=== PATIENT | male | born 1940 | race Caucasian/White ===

== ENCOUNTER → 2019-11-13 08:45 | Outpatient (CLI) | payer MEDICARE, SELFPAY ==
[2019-11-13 09:58] LABS: Hemoglobin A1C% w Est Avg Glu 6.1 % (4.0-6.0)
[2019-11-13 10:00] LABS: Alanine Aminotransferase 24 IU/L (<50); Albumin 4.8 g/dL (3.5-5.0); Albumin Globulin Ratio 1.8 (1.0-2.8); Alkaline Phosphatase 59 U/L (38-126); Aspartate Aminotransferase 28 IU/L (17-59); Bilirubin Total 0.5 mg/dL (0.2-1.3); Blood Urea Nitrogen 29 mg/dL (9-20); Calcium 10.2 mg/dL (8.4-10.2); Carbon Dioxide 28 mmol/L (22-32); Chloride 104 mmol/L (98-107); Cholesterol 126 mg/dL (140-199); Estimated Glomerular Filt Rate > 60.0 mL/min (>60); Globulin 2.6 g/dL (1.7-4.1); Glucose 148 mg/dL (80-110); HDL Cholesterol 37 mg/dL (40-60); HEMOLYSIS < 15 (0-50); LDL Cholesterol Calculated 69 mg/dL (<100); Potassium 4.4 mmol/L (3.4-5.1); Sodium 141 mmol/L (137-145); Total Protein 7.4 g/dL (6.3-8.2); Triglycerides 101 mg/dL (35-150)
== END ==
PROVIDERS: PCP Internal Medicine; Visit Provider Internal Medicine
DX: E11.9 Type 2 diabetes mellitus without complications (principal); I10 Essential (primary) hypertension; I25.10 Atherosclerotic heart disease of native coronary artery without angina pectoris
CPT/HCPCS: 36415; 80053; 80061; 83036

== ENCOUNTER → 2020-05-26 07:17 | Outpatient (CLI) | payer MEDICARE, SELFPAY ==
[2020-05-26 08:33] LABS: Alanine Aminotransferase 23 IU/L (<50); Albumin 4.6 g/dL (3.5-5.0); Albumin Globulin Ratio 1.7 (1.0-2.8); Alkaline Phosphatase 59 U/L (38-126); Aspartate Aminotransferase 27 IU/L (17-59); BUN Creatinine Ratio 24.3 (6-22); Bilirubin Total 0.5 mg/dL (0.2-1.3); Blood Urea Nitrogen 28 mg/dL (9-20); Calcium 10.2 mg/dL (8.4-10.2); Carbon Dioxide 28 mmol/L (22-32); Chloride 102 mmol/L (98-107); Estimated Glomerular Filt Rate > 60.0 mL/min (>60); Globulin 2.7 g/dL (1.7-4.1); Glucose 131 mg/dL (80-110); HEMOLYSIS < 15 (0-50); Potassium 4.5 mmol/L (3.4-5.1); Sodium 137 mmol/L (137-145); Total Protein 7.3 g/dL (6.3-8.2)
[2020-05-30 08:09] LABS: Cholesterol, Total 125 mg/dL (100-199); HDL-Cholesterol 42 mg/dL (>39); HDL-Particle (Total) 32.2 umol/L (>=30.5); LDL Particle 920 nmol/L (<1000); LDL-Cholsterol 66 mg/dL (0-99); LP-IR Score 57 (<=45); Small LDL- Particle 633 nmol/L (<=527); Triglycerides 86 mg/dL (0-149)
== END ==
PROVIDERS: PCP Internal Medicine; Referring Provider Specialist; Visit Provider Specialist
DX: E78.5 Hyperlipidemia, unspecified (principal)
CPT/HCPCS: 36415; 80053; 80061; 83704

== ENCOUNTER → 2021-01-05 07:38 | Outpatient (CLI) | payer MEDICARE, SELFPAY ==
--- NOTE | 2021-01-05 | DI.ECHO.S_ITS ---
[place] [facility]---------+ [facility] +---------+ : : [address] : [address] : : : : [id number] : : : : Phone: [phone]+ Echocardiogram Report + + :Name: TING JOHNSON Study Date: 01/05/2021 Height: 66 in : :[facility] ReadingLocation: Weight: 186 lb : : Gender: Male BSA: 1.9 m2 : :: 1940 Age: 80 yrs BP: 131/74 mmHg: :Reason For Study: Palpitations : :Ordering Physician: Clement : :Adrienne Campos Performed By: Becka Fishman : + + Interpretation Summary Left ventricular systolic function appears normal with an estimated ejection fraction of 55 to 60% without any focal wall motion abnormality although and slightly less dynamic compared to the previous study. Left ventricular size is normal with borderline LVH. Diastolic function likely has a relaxation abnormality but filling pressures are likely normal. The right ventricle is normal in size with borderline reduced systolic function and appears slightly less dynamic compared to the previous study. Right ventricular systolic pressure cannot be estimated. Both atria are normal in size although both have increased in size since the previous study. There is moderate aortic valve sclerosis without stenosis and mild to moderate aortic regurgitation that grossly appears unchanged from the previous study. There is no other significant valvular abnormality. The aortic root, ascending aorta, and aortic arch are all mildly enlarged and measure larger compared to the previous study. Procedure: A two-dimensional transthoracic echocardiogram with color flow and Doppler was performed. The study quality was technically adequate. Comparison is made with the echocardiogram of 12/05/2011. The patient was in sinus bradycardia with heart rates between 51-61 bpm during the exam. Left Ventricle: The left ventricle is normal in size. There is borderline concentric left ventricular hypertrophy. There is no ventricular septal defect visualized. Left ventricular systolic function appears normal without focal wall motion abnormalities. The ejection fraction is estimated to be 55-60%. This is slightly less dynamic compared to the previous study. Diastolic parameters suggest a relaxation abnormality of the left ventricle, consistent with probable normal filling pressures. Right Ventricle: The right ventricle is normal size. Right ventricular systolic function is borderline reduced. This is slightlly less dynamic compared to the previous study. Atria: Both atria are normal in size. Both atria have mildly increased in size since the prior echo exam. There is no Doppler evidence for an interatrial shunt. Mitral Valve: There is mild mitral annular calcification. There is trace mitral regurgitation. Aortic Valve: The aortic valve is trileaflet. The aortic valve is moderately calcified. The aortic valve opens well. There is mild to moderate aortic regurgitation. This is unchanged compared to the previous study. Tricuspid Valve: The tricuspid valve leaflets are thin and pliable. There is a trace or physiologic amount of tricuspid regurgitation. Pulmonary artery pressures cannot be estimated because of the lack of a measurable TR jet velocity. Pulmonic Valve: The pulmonic valve is not well visualized. Great Vessels: The aortic root is borderline dilated. The ascending aorta is mildly enlarged. The aortic arch is mildly enlarged. This is larger compared to the previous study. The inferior vena cava was not visualized. Pericardium/ Pleura There is no pericardial effusion. MMode/2D Measurements & Calculations LVIDd: 4.4 cm LVOT diam: 2.5 cm LVIDs: 3.1 cm Ao root diam: 4.1 cm FS: 30.8 % asc Aorta Diam: 3.9 cm EPSS: 0.67 cm Ao Arch Diam (Prox Trans): 3.2 cm IVSd: 1.0 cm LVPWd: 1.1 cm LV hsieh. diameter/BSA (cm/m^2): 2.3 LV sys. diameter/BSA (cm/m^2): 1.6 LA A2 area: 23.6 cm2 RA long axis: 5.0 cm LA A4 area: 14.4 cm2 RA area: 12.4 cm2 LA length (vol): 5.0 cm RA vol: 26.0 ml LA vol: 57.5 ml RA : 13.4 ml/m2 LA vol index: 29.6 ml/m2 RVD1 (basal): 3.6 cm TAPSE: 1.2 cm Doppler Measurements & Calculations Ao V2 max: 152.5 cm/sec LVOT Max Robert: 101.8 cm/sec Ao V2 mean: 106.8 cm/sec LV V1 max P.1 mmHg Ao max P.3 mmHg LV V1 VTI: 26.0 cm Ao mean P.1 mmHg LESLY(I,D): 3.7 cm2 Ao V2 VTI: 35.7 cm LESLY(V,D): 3.3 cm2 sev ratio: 0.73 LESLY indexed to BSA (cm^2/m^2): 1.9 AI P1/2t: 787.3 msec AI dec slope: 123.7 cm/sec2 MV E max robert: 95.4 cm/sec TR max robert: 230.3 cm/sec MV A max robert: 112.6 cm/sec TR max P.2 mmHg MV E/A: 0.85 PA V2 max: 98.8 cm/sec Med Peak E' Robert: 7.1 cm/sec PA V2 mean: 70.7 cm/sec E/E' med: 13.5 PA mean P.2 mmHg Lat Peak E' Robert: 11.5 cm/sec PA pr(Accel): 31.5 mmHg E/E' lat: 8.3 E/e' average: 10.9 MV dec time: 0.31 sec SV(LVOT): 130.5 ml Reading Physician:04:10 PM
[2021-01-05 09:03] LABS: Alanine Aminotransferase 24 IU/L (<50); Albumin 4.7 g/dL (3.5-5.0); Albumin Globulin Ratio 1.9 (1.0-2.8); Alkaline Phosphatase 52 U/L (38-126); Aspartate Aminotransferase 27 IU/L (17-59); BUN Creatinine Ratio 23.5 (6-22); Bilirubin Total 0.4 mg/dL (0.2-1.3); Blood Urea Nitrogen 28 mg/dL (9-20); Calcium 9.9 mg/dL (8.4-10.2); Carbon Dioxide 28 mmol/L (22-32); Chloride 101 mmol/L (98-107); Estimated Glomerular Filt Rate 58.8 mL/min (>60); Globulin 2.5 g/dL (1.7-4.1); Glucose 137 mg/dL (80-110); HEMOLYSIS < 15 (0-50); Magnesium 2.2 mg/dL (1.6-2.3); Potassium 4.3 mmol/L (3.4-5.1); Sodium 138 mmol/L (137-145); Total Protein 7.2 g/dL (6.3-8.2)
[2021-01-18 13:34] LABS: LDL Particle SEE SEPARATE REPORTS
== END ==
PROVIDERS: PCP Internal Medicine; Referring Provider Specialist; Visit Provider Specialist
DX: I35.1 Nonrheumatic aortic (valve) insufficiency (principal); I77.89 Other specified disorders of arteries and arterioles; R00.2 Palpitations; I10 Essential (primary) hypertension; E78.5 Hyperlipidemia, unspecified; G47.33 Obstructive sleep apnea (adult) (pediatric)
CPT/HCPCS: 36415; 80053; 80061; 83704; 83735; 93306

== ENCOUNTER → 2021-03-15 10:13 | Outpatient (CLI) | payer MEDICARE, SELFPAY ==
[2021-03-15 10:44] LABS: COVID19 -Nasal RAPID Negative (Negative)
== END ==
PROVIDERS: PCP Internal Medicine; Visit Provider Specialist
DX: Z20.822 Contact with and (suspected) exposure to COVID-19 (principal)
CPT/HCPCS: 87635; C9803

== ENCOUNTER 2021-03-16 06:22 | Day surgery (SDC) | payer MEDICARE, SELFPAY ==
[2021-03-16] MEDS: LACTATED RINGERS 1,000 ML 100 ML IV (07:11)
[2021-03-16 07:12] VITALS: BP 156/70; PULSE 64; RESP 14; TEMP 36.2; O2SAT 96; BMI 29.8
--- NOTE | 2021-03-16 07:39 | P.HP_ITS ---
History of Present Illness History of Present Illness Date Patient Seen: 03/16/21 Time Patient Seen: 07:39 Chief complaint: SCREENING COLONOSCOPY Narrative: Patient is a gentleman here for screening colonoscopy. His last colonoscopy was done at [facility] and they sent him a letter that he was due for his next exam. He is uncertain if he has had polyps in the past but I suspect so. Also, he has no history in his family of colon cancer. Patient History Medical History Hypertension Myocardial infarct QUIQUE on CPAP Prediabetes Surgical History H/O heart bypass surgery Family & Social History Social History: household members spouse Tobacco & Substance use: Smoking Status Never smoker alcohol intake current alcohol intake frequency a few times a week Substance Use Type does not use Meds Home Medications and Allergies Home Medications Medication Instructions Recorded Confirmed Type simvastatin 40 mg PO Q DAY #0 11/23/11 03/16/21 History aspirin 81 mg PO QDAY #0 01/09/12 03/16/21 History cyanocobalamin (vitamin B-12) 1,000 mcg PO DAILY 03/16/21 03/16/21 History [Vitamin B-12] ibuprofen 200 mg PO BEDTIME 03/16/21 03/16/21 History losartan-hydrochlorothiazide 1 tab PO DAILY 03/16/21 03/16/21 History Allergies Allergy/AdvReac Type Severity Reaction Status Date / Time No Known Drug Allergies Allergy Verified 03/16/21 07:00 Review of Systems Review of Systems Narrative: No cardiac symptoms since his bypass ROS: Yes All systems reviewed with the patient and are negative except as otherwise documented Exam Vital Signs (past 8 hours): - 03/16/21 07:12 Temperature 97.2 F L Pulse Rate 64 Respiratory Rate 14 Blood Pressure 156/70 H Pulse Oximetry 96 Oxygen Delivery Method Room Air Narrative Exam Narrative: Pleasant cooperative patient no apparent distress. Lungs are clear to auscultation. No rales or rhonchi. Heart regular rate and rhythm no murmur gallop. Abdomen is soft nontender without mass. Diastasis recti noted. No obvious hernias. Patient is alert and oriented x3. Assessment & Plan Assessment & Plan narrative: The patient for a screening colonoscopy. I have discussed the procedure with them. Risks of bleeding, perforation which would necessitate major operation, failure to find remove all lesions, the potential tattoo were all discussed. All questions were answered. They wished to proceed.
--- NOTE | 2021-03-16 07:41 | PM.PREOP ---
Pre-operative Note Interval Note History & Physical reviewed/Exam performed by Physician: Yes Changes to H&P: No ASA Class (for procedural sedation): III
[2021-03-16] MEDS: fentaNYL 250 MCG/5 ML INJ IV (07:53)
[2021-03-16] MEDS: MIDAZOLAM 5 MG/5 ML VIAL IV (07:53)
--- NOTE | 2021-03-16 08:19 | P.OP.ENDO_ITS ---
Operative Date/Time/Diagnoses Date of procedure: 03/16/21 Time of procedure: 08:19 Pre-op diagnosis: Screening exam. Probable history of polyps. Post-op diagnosis: same Procedure & Clinicians Study performed: Colonoscopy Same procedure as scheduled: Yes Indications: Screening Surgeon: Chun Garcia Procedure Notes SCOAP/Timeout: Performed Procedure in detail: The patient was placed in the left lateral decubitus posit ion and underwent IV sedation directed by the surgeon consisting of fentanyl and Versed. Digital exam was unremarkable. He did have a visible external hemorrhoid. His prostate is normal size without palpable mass.. The scope was inserted and advanced through the rectum into the sigmoid, descending, transverse, and ascending colon. Pressure was applied we made our way into the cecum.. The cecum was reached identified by the ileocecal valve and the appendiceal opening. The scope was gradually brought out. No Polyps were found. No diverticuli were seen. The scope ultimately was retroflexed in the rectum. The appearance was normal. The scope was removed and the patient tolerated the procedure well. The prep was very good Scope withdrawal time: Almost 8 minutes Sedation minutes: 24 Specimen(s): none sent Impression: Normal examination Post-procedure Recommendations: Colonscopy in 5 years (If polyps have been found on prior exams and if patient is in good health.) Follow up: as needed Disposition: PACU
[2021-03-16 08:22] VITALS: BP 114/68; PULSE 67; RESP 16; TEMP 37.1; O2SAT 95
[2021-03-16 08:27] VITALS: BP 126/72; PULSE 63; RESP 15; O2SAT 95
[2021-03-16 08:32] VITALS: BP 136/71; PULSE 62; RESP 15; O2SAT 95
[2021-03-16 08:37] VITALS: BP 129/74; PULSE 61; RESP 15; O2SAT 96
[2021-03-16 08:38] VITALS: BP 120/62; PULSE 61; RESP 15; TEMP 36.6; O2SAT 96
== END 2021-03-16 08:48 | disposition home or self-care (01) ==
PROVIDERS: PCP Internal Medicine; Referring Provider Internal Medicine; Visit Provider Specialist
PROC: 0DJD8ZZ Inspection of Lower Intestinal Tract, Via Natural or Artificial Opening Endoscopic (ICD-10-PCS; CPT 45378; principal; 2021-03-16 07:45)
DX: Z12.11 Encounter for screening for malignant neoplasm of colon (principal); I10 Essential (primary) hypertension; G47.33 Obstructive sleep apnea (adult) (pediatric); R73.03 Prediabetes; I25.2 Old myocardial infarction
CPT/HCPCS: G0121; 99152; J2250; J3010

== ENCOUNTER → 2021-08-17 07:30 | Outpatient (CLI) | payer MEDICARE, SELFPAY ==
[2021-08-17 08:59] LABS: Alanine Aminotransferase 20 IU/L (<50); Albumin 4.5 g/dL (3.5-5.0); Albumin Globulin Ratio 1.7 (1.0-2.8); Alkaline Phosphatase 48 U/L (38-126); Aspartate Aminotransferase 24 IU/L (17-59); BUN Creatinine Ratio 22.3 (6-22); Bilirubin Total 0.5 mg/dL (0.2-1.3); Blood Urea Nitrogen 27 mg/dL (9-20); Calcium 10.3 mg/dL (8.4-10.2); Carbon Dioxide 26 mmol/L (22-32); Chloride 100 mmol/L (98-107); Cholesterol 126 mg/dL (140-199); Estimated Glomerular Filt Rate 57.7 mL/min (>60); Globulin 2.6 g/dL (1.7-4.1); Glucose 137 mg/dL (80-110); HDL Cholesterol 47 mg/dL (40-60); HEMOLYSIS < 15 (0-50); LDL Cholesterol Calculated 62 mg/dL (<100); Magnesium 2.1 mg/dL (1.6-2.3); Potassium 4.8 mmol/L (3.4-5.1); Sodium 136 mmol/L (137-145); Total Protein 7.1 g/dL (6.3-8.2); Triglycerides 84 mg/dL (35-150)
== END ==
PROVIDERS: PCP Internal Medicine; Referring Provider Specialist; Visit Provider Specialist
DX: I10 Essential (primary) hypertension (principal); E78.5 Hyperlipidemia, unspecified
CPT/HCPCS: 36415; 80053; 80061; 83735

== ENCOUNTER → 2022-03-15 09:24 | Outpatient (CLI) | payer MEDICARE, SELFPAY ==
[2022-03-15 10:23] LABS: Alanine Aminotransferase 22 IU/L (<50); Albumin 4.9 g/dL (3.5-5.0); Albumin Globulin Ratio 1.7 (1.0-2.8); Alkaline Phosphatase 54 U/L (38-126); Aspartate Aminotransferase 28 IU/L (17-59); Bilirubin Total 0.6 mg/dL (0.2-1.3); Blood Urea Nitrogen 28 mg/dL (9-20); Calcium 9.7 mg/dL (8.4-10.2); Carbon Dioxide 25 mmol/L (22-32); Chloride 99 mmol/L (98-107); Cholesterol 122 mg/dL (140-199); Estimated Glomerular Filt Rate 60 mL/min (>60); Globulin 2.9 g/dL (1.7-4.1); Glucose 136 mg/dL (80-110); HDL Cholesterol 44 mg/dL (40-60); HEMOLYSIS < 15 (0-50); LDL Cholesterol Calculated 55 mg/dL (<100); Potassium 4.7 mmol/L (3.4-5.1); Sodium 133 mmol/L (137-145); Total Protein 7.8 g/dL (6.3-8.2); Triglycerides 117 mg/dL (35-150)
[2022-03-15 10:26] LABS: Hemoglobin A1C% w Est Avg Glu 6.8 % (4.0-6.0)
[2022-03-15 10:57] LABS: Prostate Specific Antigen 0.236 ng/mL (0.10-4.00)
[2022-03-15 11:00] LABS: TSH w/ Reflex to FT4 1.69 uIU/mL (0.47-4.68)
[2022-03-15 11:16] LABS: Vitamin B12 390 pg/mL (239-931)
[2022-03-15 11:38] LABS: Hematocrit 36.2 % (41-53); Hemoglobin 12.7 g/dL (13.5-17.5); Mean Corpuscular HGB Conc 35.1 % (30-36); Mean Corpuscular Hemoglobin 31.5 PG (26-34); Mean Corpuscular Volume 89.9 fL (80-100); Platelet Count 184 X10^3/uL (150-400); Red Blood Cell Count 4.02 X10^6/uL (4.5-5.9); Red Cell Distribution Width 12.5 % (11.6-14.8); White Blood Cell Count 5.5 X10^3/uL (4.5-11.0)
== END ==
PROVIDERS: PCP Internal Medicine; Referring Provider Internal Medicine; Visit Provider Internal Medicine
DX: E78.2 Mixed hyperlipidemia (principal); R73.01 Impaired fasting glucose; N40.0 Benign prostatic hyperplasia without lower urinary tract symptoms; I10 Essential (primary) hypertension; I25.10 Atherosclerotic heart disease of native coronary artery without angina pectoris
CPT/HCPCS: 36415; 80053; 80061; 82607; 83036; 84153; 84443; 85027

== ENCOUNTER → 2022-04-10 16:34 | Outpatient (CLI) | payer MEDICARE, SELFPAY ==
--- NOTE | 2022-04-10 16:36 | DI.RAD.S_ITS ---
PROCEDURE: XR CHEST 2V INDICATIONS: Cough for 2 weeks TECHNIQUE: 2 views of the chest were acquired. COMPARISON: [facility], , CHEST 1 VIEW, 01/09/2012, 15:45. FINDINGS: Surgical changes and devices: Median sternotomy. Lungs and pleura: Moderate airspace opacity within the medial right lung base. No pleural effusions or pneumothorax. Mediastinum: Mediastinal contours are normal. Heart size is normal. Bones and chest wall: No suspicious bony abnormalities. Soft tissues appear unremarkable. IMPRESSION: Right lung base pneumonia. Continued plain film surveillance is recommended to ensure resolution, and to exclude underlying or central malignancy. Dictated by: Monica Morgan M.D. on 04/10/2022 at 16:53 Approved by: Monica Morgan M.D. on 04/10/2022 at 16:54
== END ==
PROVIDERS: PCP Internal Medicine; Referring Provider Physician Assistant; Visit Provider Physician Assistant
DX: R05.9 Cough, unspecified (principal); J18.9 Pneumonia, unspecified organism
CPT/HCPCS: 71046

== ENCOUNTER → 2022-08-13 06:44 | Outpatient (CLI) | payer MEDICARE, SELFPAY ==
[2022-08-13 09:32] LABS: Alanine Aminotransferase 19 IU/L (<50); Albumin 4.6 g/dL (3.5-5.0); Albumin Globulin Ratio 1.7 (1.0-2.8); Alkaline Phosphatase 52 U/L (38-126); Aspartate Aminotransferase 24 IU/L (17-59); BUN Creatinine Ratio 18.3 (6-22); Bilirubin Total 0.5 mg/dL (0.2-1.3); Blood Urea Nitrogen 22 mg/dL (9-20); Calcium 9.7 mg/dL (8.4-10.2); Carbon Dioxide 23 mmol/L (22-32); Chloride 102 mmol/L (98-107); Estimated Glomerular Filt Rate > 60 mL/min (>60); Globulin 2.7 g/dL (1.7-4.1); Glucose 145 mg/dL (80-110); HEMOLYSIS < 15 (0-50); Potassium 4.5 mmol/L (3.4-5.1); Sodium 136 mmol/L (137-145); Total Protein 7.3 g/dL (6.3-8.2)
[2022-08-15 13:57] LABS: Cholesterol, Total 149 mg/dL (100-199); HDL-Cholesterol 47 mg/dL (>39); HDL-Particle (Total) 34.5 umol/L (>=30.5); LDL Particle 771 nmol/L (<1000); LDL-Cholsterol 79 mg/dL (0-99); LP-IR Score 71 (<=45); Small LDL- Particle 512 nmol/L (<=527); Triglycerides 133 mg/dL (0-149)
== END ==
PROVIDERS: PCP Internal Medicine; Referring Provider Specialist; Visit Provider Specialist
DX: I10 Essential (primary) hypertension (principal); E78.5 Hyperlipidemia, unspecified
CPT/HCPCS: 36415; 80053; 80061; 83704; 83735

== ENCOUNTER → 2022-09-20 08:39 | Outpatient (CLI) | payer MEDICARE, SELFPAY ==
[2022-09-20 09:55] LABS: Hematocrit 37.1 % (41-53); Hemoglobin 12.9 g/dL (13.5-17.5); Mean Corpuscular HGB Conc 34.8 % (30-36); Mean Corpuscular Hemoglobin 30.5 PG (26-34); Mean Corpuscular Volume 87.7 fL (80-100); Platelet Count 165 X10^3/uL (150-400); Red Blood Cell Count 4.24 X10^6/uL (4.5-5.9); Red Cell Distribution Width 12.9 % (11.6-14.8); White Blood Cell Count 5.6 X10^3/uL (4.5-11.0)
[2022-09-20 10:11] LABS: Creatinine Urine Random 102.6 mg/dL
[2022-09-20 10:15] LABS: Microalbumi Creatinin Ratio Ur 17.5 ug/mg CR (<30); Microalbumin Urine Random 1.8 mg/dL (0-1.6)
[2022-09-20 10:31] LABS: Hemoglobin A1C% w Est Avg Glu 7.4 % (4.0-6.0)
== END ==
PROVIDERS: PCP Internal Medicine; Referring Provider Internal Medicine; Visit Provider Internal Medicine
DX: E11.69 Type 2 diabetes mellitus with other specified complication (principal); E78.5 Hyperlipidemia, unspecified; D64.9 Anemia, unspecified
CPT/HCPCS: 36415; 82043; 82570; 83036; 85027

== ENCOUNTER 2022-09-26 11:23 | Emergency (ER) | payer MEDICARE, SELFPAY ==
[2022-09-26 11:32] VITALS: BP 149/70; PULSE 68; RESP 22; TEMP 36.6; O2SAT 95; BMI 29.8
--- NOTE | 2022-09-26 11:35 | DI.RAD.S_ITS ---
PROCEDURE: XR CHEST 2V INDICATIONS: cough/short of breath TECHNIQUE: 2 views of the chest were acquired. COMPARISON: [facility], CHEST 1 VIEW, 01/09/2012, 15:45. [facility], CHEST 1 VIEW, 11/22/2011, 21:44. [facility], XR CHEST 2V, 04/10/2022, 16:29. FINDINGS: Surgical changes and devices: Post CABG changes are seen. Lungs and pleura: An incomplete inspiratory result is noted, causing a crowded appearance to the lung markings. No focal infiltrates are seen. No pneumothorax or significant pleural effusions are seen. There is persistent elevation the right hemidiaphragm. Mediastinum: Mediastinal contours are normal. Heart size is normal. Bones and chest wall: No suspicious bony abnormalities. Age-appropriate bony degenerative changes are seen. Soft tissues appear unremarkable. IMPRESSION: Low lung volumes are seen, without an acute abnormality. Postoperative and degenerative changes are seen. Persistent elevation of the right hemidiaphragm is seen. If there is strong clinical concern for paralysis of this hemidiaphragm, please consider a dedicated fluoroscopic sniff test for further evaluation. Dictated by: Alphonse Lombardi M.D. on 09/26/2022 at 11:20 Approved by: Alphonse Lombardi M.D. on 09/26/2022 at 11:21
--- NOTE | 2022-09-26 12:16 | ED.FEVER ---
HPI - Fever <Jazzy Bacon PA-C - Last Filed: 09/26/22 14:19> General Chief Complaint: Fever Stated Complaint: pneumonia Time Seen by Provider: 09/26/22 12:10 Source: patient Mode of arrival: Ambulatory History of Present Illness HPI Narrative: Patient is a very pleasant 82 years old male, with PMH significant for dyslipidemia, anemia hypertension, presents today in ER with complaints of persistent cough, congestion for last 3 days.. He is quite concerned, as he has immunocompromised spouse at home, who is on chemotherapy. In terms of symptoms, patient had fever nasal congestion persistent cough with productive green sputum. His symptoms started to subside however he noted some chest congestion and cough which worsened p.m. the patient was treated for pneumonia in summer 2021, and concerned as his symptoms can progress to that. Related Data Home Medications Medication Instructions Recorded Confirmed aspirin 81 mg tablet,delayed 81 mg PO QDAY ##0 01/09/12 09/20/22 release cyanocobalamin (vitamin B-12) 1,000 mcg PO DAILY 03/16/21 09/20/22 1,000 mcg tablet (Vitamin B-12) Respironics DreamStation 2 01/10/22 09/20/22 L. acidophilus/Bifid. animalis 1 cap PO DAILY 09/20/22 09/20/22 [Daily Probiotic] atorvastatin 40 mg tablet 40 mg PO DAILY 09/20/22 09/20/22 vital red PO DAILY 09/20/22 Previous Rx's Medication Instructions Recorded losartan 50 mg-hydrochlorothiazide 1 tab PO DAILY #90 tabs 03/15/22 12.5 mg tablet azithromycin 250 mg tablet See Rx Instructions PO .COMPLEX #6 09/26/22 (Zithromax) tabs codeine 10 mg-guaifenesin 100 mg/5 5 ml PO Q6H PRN cough #120 mL 09/26/22 mL oral liquid (Guaifenesin AC) Allergies Allergy/AdvReac Type Severity Reaction Status Date / Time No Known Drug Allergies Allergy Verified 09/26/22 11:38 Review of Systems <Jazzy Bacon PA-C - Last Filed: 09/26/22 14:19> Review of Systems Narrative: Pertinent review of systems is otherwise normal unless stated in HPI Patient History <Jazzy Bacon PA-C - Last Filed: 09/26/22 14:19> Medical History B12 deficiency Coronary artery disease DM type 2 with diabetic dyslipidemia Do not resuscitate Essential hypertension History of colon polyps Hypertension Mixed hyperlipidemia Myocardial infarct Obesity (BMI 30.0-34.9) Obstructive sleep apnea, adult (~2001) Prediabetes RLL pneumonia Surgical History H/O heart bypass surgery Social History marital status: (to Cherie) details: lives in [place] number of children: 1 household members: spouse lives independently: Yes caregiver/support person: No housing: house education level: college (BA) occupational status: other (retired) Smoking Status: Never smoker alcohol intake: current Smoking Status: Never smoker alcohol intake frequency: a few times a week Alcohol type: wine and hard liquor Substance Use Type: does not use Exam <Jazzy Bacon PA-C - Last Filed: 09/26/22 14:19> Narrative Exam Narrative: GENERAL: 82 year old patient appears stated age. Well-developed patient, in mild distress. HEAD: Atraumatic. Normocephalic. EYES: Pupils equal round and reactive. Extraocular motions intact. No scleral icterus. No injection or drainage. ENT: Oropharynx erythematous, with clear nasal discharge Airway patent. NECK: Trachea midline. Non tender CARDIOVASCULAR: Regular rate and rhythm without murmurs, gallops, or rubs. RESPIRATORY: Bilateral rhonchi, cleared with cough and posterior lower lobes. Anterior lobes with coarse breath sound GASTROINTESTINAL: Abdomen soft, non-tender, nondistended. EXTREMITIES: No edema or joint tenderness. BACK: Nontender without deformity or crepitance. No flank tenderness. NEURO: AOx3. SKIN: No rash or erythema of visible areas Initial Vital Signs Initial Vital Signs: Vital Signs Temperature 97.9 F 09/26/22 11:32 Pulse Rate 68 09/26/22 11:32 Respiratory Rate 22 09/26/22 11:32 Blood Pressure 149/70 H 09/26/22 11:32 Pulse Oximetry 95 09/26/22 11:32 Oxygen Delivery Method 09/26/22 11:32 <Aldo Marquez DO - Last Filed: 09/26/22 15:30> Initial Vital Signs Initial Vital Signs: Vital Signs Temperature 97.9 F 09/26/22 11:32 Pulse Rate 68 09/26/22 11:32 Respiratory Rate 22 09/26/22 11:32 Blood Pressure 149/70 H 09/26/22 11:32 Pulse Oximetry 95 09/26/22 11:32 Oxygen Delivery Method 09/26/22 11:32 Course <Jazzy Bacon PA-C - Last Filed: 09/26/22 14:19> Orders Ordered: ED Orders 09/26/22 11:35 XR chest 2V Stat 09/26/22 11:40 Covid-19 + FLU A/B + RSV - PCR Stat Vital Signs Vital signs: Vital Signs - 8 hr 09/26/22 11:32 09/26/22 13:00 Temperature 97.9 F Pulse Rate 68 65 Respiratory Rate 22 18 Blood Pressure 149/70 H 132/63 Pulse Oximetry 95 96 Oxygen Delivery Method Room Air Room Air <Aldo Marquez DO - Last Filed: 09/26/22 15:30> Orders Ordered: ED Orders 09/26/22 11:35 XR chest 2V Stat 09/26/22 11:40 Covid-19 + FLU A/B + RSV - PCR Stat Vital Signs Vital signs: Vital Signs - 8 hr 09/26/22 11:32 09/26/22 13:00 Temperature 97.9 F Pulse Rate 68 65 Respiratory Rate 22 18 Blood Pressure 149/70 H 132/63 Pulse Oximetry 95 96 Oxygen Delivery Method Room Air Room Air MDM - Fever <Jazzy Bacon PA-C - Last Filed: 09/26/22 14:19> Lab Data Labs: Lab Results 09/26/22 Range/Units 11:40 SARS-CoV-2 (PCR) Negative (Negative) Influenza A (RT-PCR) Flu a negative (NEGATIVE) Influenza B (RT-PCR) Flu b negative (NEGATIVE) RSV (PCR) Negative (Negative) Imaging Data Chest x-ray: Radiologist's Impression: IMPRESSION:? Low lung volumes are seen, without an acute abnormality. ? Postoperative and degenerative changes are seen.? ? Persistent elevation of the right hemidiaphragm is seen.? If there is strong clinical concern for paralysis of this hemidiaphragm, please consider a dedicated fluoroscopic sniff test for further evaluation.? MDM Narrative Medical decision making narrative: Discussed with patient diagnosis and treatment. His symptoms most resemble acute bronchitis, in setting of acute respiratory syndrome, of which is not related to RSV, influenza A/B, or COVID 19 infection discussed symptom management, started on Z-Adrián, antitussives, increase hydration rest. Encouraged to exercise infectious precautions, explained the concept patient. <Aldo Marquez, - Last Filed: 09/26/22 15:30> Lab Data Labs: Lab Results 09/26/22 Range/Units 11:40 SARS-CoV-2 (PCR) Negative (Negative) Influenza A (RT-PCR) Flu a negative (NEGATIVE) Influenza B (RT-PCR) Flu b negative (NEGATIVE) RSV (PCR) Negative (Negative) Discharge Plan Departure Patient Disposition: Home Clinical Impression: Acute bronchitis and bronchiolitis, Acute upper respiratory infection, unspecified Instructions: DI for Fever (Symptom) -- Adult Activity Restrictions/Additional Instructions: You were diagnosed with acute bronchitis, and upper respiratory infection. The viral panel did not reveal influenza A/B, RSV, COVID-19. Vital signs has been stable in the ED discussed diagnosis and management, advised symptomatic control, start Zithromax, course of antibiotic, as well as guaifenesin codeine syrup for cough suppressant. Seek attention with worsening symptoms such as worsening shortness of breath, fever. Advised on infection preventing precautions, follow-up with PCP. Prescriptions: New azithromycin [Zithromax] 250 mg tablet See Rx Instructions .ROUTE .COMPLEX Qty: 6 0RF Rx Instructions: For 250 mg dose pack: take 500 mg today (day 1), then 250 mg for 4 days (days 2-5) codeine-guaifenesin [Guaifenesin AC] 10-100 mg/5 mL liquid 5 ml PO Q6H PRN (Reason: cough) Qty: 120 0RF No Action aspirin 81 MG tablet,delayed release (DR/EC) 81 mg PO QDAY Qty: 0 losartan-hydrochlorothiazide 50-12.5 mg tablet 1 tab PO DAILY Qty: 90 3RF atorvastatin 40 mg tablet 40 mg PO DAILY vital red PO DAILY L. acidophilus/Bifid. animalis [Daily Probiotic] 1 cap PO DAILY cyanocobalamin (vitamin B-12) [Vitamin B-12] 1,000 mcg Tablet 1,000 mcg PO DAILY (DME) Respironics DreamStation 2 See Rx Instructions .Route .MEDSUPPLY Rx Instructions: CPAP Min: 8 Max: 16 DME: [employer] Referrals: Malick Lerma MD [Primary Care Provider] - Visit Report Forms: Patient Portal/API <Aldo Marquez, - Last Filed: 09/26/22 15:30> Cosign ED Attending Cosignature Attestation: Dr Marquez Co-Sign Statement: I was available for consultation during this patient's emergency department visit. This chart is signed by myself for administrative purposes only. I did not have direct contact with this patient during this visit. They were seen independently by the APC.
[2022-09-26 12:29] LABS: Influenza A - CEPHEID Flu A NEGATIVE (NEGATIVE); Influenza B - CEPHEID Flu B NEGATIVE (NEGATIVE); Respiratory Syncytial Virus Negative (Negative)
[2022-09-26 12:32] LABS: COVID-19 CEPHEID 4-PLEX PCR Negative (Negative)
[2022-09-26 13:00] VITALS: BP 132/63; PULSE 65; RESP 18; O2SAT 96
== END 2022-09-26 13:02 | disposition home or self-care (01) ==
PROVIDERS: Emergency Medicine; Emergency Provider Physician Assistant Medical; PCP Internal Medicine
DX: J06.9 Acute upper respiratory infection, unspecified (principal); J21.9 Acute bronchiolitis, unspecified; J20.8 Acute bronchitis due to other specified organisms
CPT/HCPCS: 0241U; 71046; 99283

== ENCOUNTER → 2023-02-12 07:26 | Outpatient (CLI) | payer MEDICARE, SELFPAY ==
[2023-02-12 09:03] LABS: Alanine Aminotransferase 25 IU/L (<50); Albumin 4.3 g/dL (3.5-5.0); Albumin Globulin Ratio 1.5 (1.0-2.8); Alkaline Phosphatase 70 U/L (38-126); Aspartate Aminotransferase 22 IU/L (17-59); BUN Creatinine Ratio 21.9 (6-22); Bilirubin Total 0.6 mg/dL (0.2-1.3); Blood Urea Nitrogen 25 mg/dL (9-20); Calcium 9.8 mg/dL (8.4-10.2); Carbon Dioxide 28 mmol/L (22-32); Chloride 100 mmol/L (98-107); Estimated Glomerular Filt Rate > 60 mL/min (>60); Globulin 2.8 g/dL (1.7-4.1); Glucose 187 mg/dL (80-110); HEMOLYSIS < 15 (0-50); Potassium 4.6 mmol/L (3.4-5.1); Sodium 137 mmol/L (137-145); Total Protein 7.1 g/dL (6.3-8.2)
[2023-02-15 10:08] LABS: Cholesterol, Total 125 mg/dL (100-199); HDL-Cholesterol 31 mg/dL (>39); HDL-Particle (Total) 28.5 umol/L (>=30.5); LDL Particle 828 nmol/L (<1000); LDL-Cholsterol 62 mg/dL (0-99); LP-IR Score 82 (<=45); Small LDL- Particle 471 nmol/L (<=527); Triglycerides 189 mg/dL (0-149)
== END ==
PROVIDERS: PCP Internal Medicine; Visit Provider Specialist
DX: I10 Essential (primary) hypertension (principal); E78.5 Hyperlipidemia, unspecified; I47.1 Supraventricular tachycardia
CPT/HCPCS: 36415; 80053; 80061; 83704; 83735

== ENCOUNTER 2023-03-10 12:58 | Emergency (ER) | payer MEDICARE, SELFPAY ==
[2023-03-10] VITALS (17 sets, daily range): BP systolic 169–188; BP diastolic 75–86; PULSE 68–91; RESP 22–32; TEMP 37; O2SAT 92–100; BMI 30.9
--- NOTE | 2023-03-10 13:26 | DI.RAD.S_ITS ---
PROCEDURE: XR CHEST 1V INDICATIONS: suspected sepsis TECHNIQUE: One view of the chest was acquired. COMPARISON: [facility], CR, XR CHEST 2V, 09/26/2022, 12:05. FINDINGS: Surgical changes and devices: Sternal wires. Lungs and pleura: Lungs are clear. No pleural effusions or pneumothorax. Mediastinum: Mediastinal contours appear normal. Heart size is mildly prominent. Bones and chest wall: No suspicious bony lesions. Overlying soft tissues appear unremarkable. IMPRESSION: No acute pulmonary process. Dictated by: Cinthya Mcbride M.D. on 03/10/2023 at 14:06 Approved by: Cinthya Mcbride M.D. on 03/10/2023 at 14:06
--- NOTE | 2023-03-10 13:46 | ED.URI ---
HPI - URI/Sore Throat General Chief Complaint: Upper Respiratory Symptoms Stated Complaint: SOB/respitory problems/wic sent/spouse here t-1 Time Seen by Provider: 03/10/23 13:20 Source: patient Mode of arrival: Ambulatory History of Present Illness HPI Narrative: Patient is a 82-year-old male history of hyperlipidemia, coronary artery disease, with CABG, hypertension, obstructive sleep apnea, presents today with increasing shortness of breath. He has generally not felt well for a couple of days. He reports runny nose sore throat worsening shortness of breath with exertion. He denies any orthopnea. He feels hot and cold. He denies any chest pain he is not have any productive cough. No increased swelling. He is currently afebrile but does have obvious work of breathing. No history of congestive heart failure. He is having a sore throat. No difficulty swallowing Related Data Home Medications Medication Instructions Recorded Confirmed aspirin 81 mg tablet,delayed 81 mg PO QDAY ##0 01/09/12 09/20/22 release cyanocobalamin (vitamin B-12) 1,000 mcg PO DAILY 03/16/21 09/20/22 1,000 mcg tablet (Vitamin B-12) MadeiraMadeira DreamStation 2 01/10/22 09/20/22 L. acidophilus/Bifid. animalis 1 cap PO DAILY 09/20/22 09/20/22 [Daily Probiotic] atorvastatin 40 mg tablet 40 mg PO DAILY 09/20/22 09/20/22 vital red PO DAILY 09/20/22 Previous Rx's Medication Instructions Recorded losartan 50 mg-hydrochlorothiazide 1 tab PO DAILY #90 tabs 03/15/22 12.5 mg tablet codeine 10 mg-guaifenesin 100 mg/5 5 ml PO Q6H PRN cough #120 mL 09/26/22 mL oral liquid (Guaifenesin AC) amoxicillin 875 mg-potassium 1 tab PO BID #14 tabs 03/10/23 clavulanate 125 mg tablet prednisone 20 mg tablet 40 mg PO DAILY #10 tabs 03/10/23 Allergies Allergy/AdvReac Type Severity Reaction Status Date / Time No Known Drug Allergies Allergy Verified 03/10/23 13:14 Review of Systems Review of Systems ROS Unobtainable: All systems reviewed & are unremarkable except as noted in HPI and below Patient History Medical History B12 deficiency Coronary artery disease DM type 2 with diabetic dyslipidemia Do not resuscitate Essential hypertension History of colon polyps Hypertension Mixed hyperlipidemia Myocardial infarct Obesity (BMI 30.0-34.9) Obstructive sleep apnea, adult (~2001) Prediabetes RLL pneumonia Surgical History H/O heart bypass surgery Social History marital status: (to Cherie) details: lives in [place] number of children: 1 household members: spouse lives independently: Yes caregiver/support person: No housing: house education level: college (BA) occupational status: other (retired) Smoking Status: Never smoker alcohol intake: current Smoking Status: Never smoker alcohol intake frequency: a few times a week Alcohol type: wine and hard liquor Substance Use Type: does not use Exam Initial Vital Signs Initial Vital Signs: Vital Signs Temperature 98.6 F 03/10/23 13:10 Pulse Rate 91 H 03/10/23 13:10 Respiratory Rate 26 H 03/10/23 13:10 Blood Pressure 188/86 H 03/10/23 13:10 Pulse Oximetry 96 03/10/23 13:10 Oxygen Delivery Method Room Air 03/10/23 13:10 GENERAL: Alert 82-year-old male mild to moderate respiratory distress and in no acute distress. HEENT: Head atraumatic,EOMI, pupils reactive, face symmetric, moist mucous membranes PHARYNX: Uvula is quite enlarged no hard palate swelling or uvula deviation. He is managing his own secretions, mildly erythematous CARDIOVASCULAR: Regular rate and rhythm without murmurs, rubs or gallops. RESPIRATORY: Tachypneic conversational dyspnea no wheezing or rales ABDOMEN: Soft, nontender. Normoactive bowel sounds all 4 quadrants. No guarding or rebound. EXTREMITIES: Normal range of motion, no clubbing or edema. Neurovascularly intact NEUROLOGICAL: Alert and oriented x4. SKIN: Warm, dry, no laceration, no petechiae, no rashes or lesions. Course Orders Ordered: Discontinued Medications Albuterol/Ipratropium (Albuterol/Ipratropium 3 Ml Ampul) 3 ml INH NOW ONE Stop: 03/10/23 16:29 Last Admin: 05/08/23 16:30 Dose: 3 ml Documented By: JZF Amoxicillin/Clavulanate Potassium (Amoxicillin/Clav 875/125 Mg) 1 tab PO NOW ONE Stop: 03/10/23 18:37 Last Admin: 03/10/23 18:44 Dose: 1 tab Documented By: DIANE Dexamethasone (Dexamethasone 10 Mg/Ml Vial) 10 mg IV NOW ONE Stop: 03/10/23 17:14 Last Admin: 03/10/23 17:38 Dose: 10 mg Documented By: DIANE Sodium Chloride (Normal Saline 0.9%) 1,000 mls @ 1,000 mls/hr IV BOLUS ONE Stop: 03/10/23 18:11 Last Infusion: 03/10/23 18:33 Dose: 0 mls/hr Documented By: Admin: 03/10/23 17:38 Dose: 1,000 mls/hr Documented By: DIANE Ondansetron HCl (Ondansetron 4 Mg Odt) 4 mg SL NOW PRN PRN Reason: Nausea And Vomiting Ondansetron HCl (Ondansetron 4 Mg/2 Ml Inj) 4 mg IV NOW PRN PRN Reason: Nausea And Vomiting Vital Signs Vital signs: Vital Signs - 8 hr 03/10/23 13:10 03/10/23 13:23 03/10/23 13:30 Temperature 98.6 F Pulse Rate 91 H 85 85 Respiratory Rate 26 H 29 H Blood Pressure 188/86 H Pulse Oximetry 96 95 96 Oxygen Delivery Method Room Air Oxygen Flow Rate 03/10/23 13:58 03/10/23 14:00 03/10/23 14:30 Temperature Pulse Rate 85 74 71 Respiratory Rate 22 25 H 24 Blood Pressure Pulse Oximetry 100 99 99 Oxygen Delivery Method Oxygen Flow Rate 03/10/23 14:44 03/10/23 15:55 03/10/23 15:00 Temperature Pulse Rate 71 68 68 Respiratory Rate 24 26 H 32 H Blood Pressure 174/77 H Pulse Oximetry 99 94 99 Oxygen Delivery Method Heated High Flow Oxygen Flow Rate 50 03/10/23 15:35 03/10/23 15:51 03/10/23 15:51 Temperature Pulse Rate 76 68 Respiratory Rate 24 Blood Pressure 174/77 H Pulse Oximetry 94 Oxygen Delivery Method Heated High Flow Oxygen Flow Rate 50 03/10/23 16:00 03/10/23 16:00 03/10/23 16:30 Temperature Pulse Rate 69 73 Respiratory Rate 25 H 22 Blood Pressure 169/76 H Pulse Oximetry 93 92 Oxygen Delivery Method Heated High Flow Room Air Oxygen Flow Rate 50 03/10/23 16:30 03/10/23 17:00 03/10/23 17:30 Temperature Pulse Rate 74 80 82 Respiratory Rate 24 26 H 26 H Blood Pressure Pulse Oximetry 93 93 92 Oxygen Delivery Method Oxygen Flow Rate MDM - URI/Sore Throat Lab Data 03/10/23 13:40 03/10/23 13:40 Labs: Lab Results 03/10/23 03/10/23 03/10/23 Range/Units 13:20 13:40 13:40 WBC 10.9 (4.5-11.0) X10^3/uL RBC 4.09 L (4.5-5.9) X10^6/uL Hgb 12.7 L (13.5-17.5) g/dL Hct 36.0 L (41-53) % MCV 88.1 (80-100) fL MCH 31.0 (26-34) PG MCHC 35.2 (30-36) % RDW 13.6 (11.6-14.8) % Plt Count 152 (150-400) X10^3/uL Neut % (Auto) 76.4 H (50-75) % Lymph % (Auto) 10.7 L (25-40) % [place] % (Auto) 11.3 (3-14) % Eos % (Auto) 1.2 L (2-4) % Baso % (Auto) 0.4 (0-2) % Neut # (Auto) 8400 H (4033-7731) /uL Lymph # (Auto) 1200 (0526-2191) /uL [place] # (Auto) 1200 H (0-900) /uL Eos # (Auto) 100 (0-450) /uL Baso # (Auto) 0 (0-100) /uL PT (10.1-12.7) SECONDS INR (0.9-1.3) APTT (26-36) SECONDS ABG pH (7.35-7.45) ABG pCO2 (35-45) mmHg ABG pO2 (80-100) mmHg ABG HCO3 (23-27) mmol/L ABG Total CO2 (23-27) mmol/L ABG O2 Saturation (95-100) % ABG Base Excess (-2-3) mmol/L FiO2 Sodium (137-145) mmol/L Potassium (3.4-5.1) mmol/L Chloride (98-107) mmol/L Carbon Dioxide (22-32) mmol/L BUN (9-20) mg/dL Creatinine (0.66-1.25) mg/dL Estimated GFR (>60) mL/min BUN/Creatinine Ratio (6-22) Glucose (80-110) mg/dL Lactate (0.7-2.1) mmol/L Calcium (8.4-10.2) mg/dL Total Bilirubin (0.2-1.3) mg/dL AST (17-59) IU/L ALT (<50) IU/L Alkaline Phosphatase (38-126) U/L Total Creatine Kinase (55-170) U/L CK-MB (CK-2) (<2.37) ng/mL CK-MB (CK-2) Rel Index (1.5-5.0) % Troponin I (0.01-0.034) ng/mL NT-Pro-B Natriuret Pep 233 (<450) pg/mL Total Protein (6.3-8.2) g/dL Albumin (3.5-5.0) g/dL Globulin (1.7-4.1) g/dL Albumin/Globulin Ratio (1.0-2.8) Lipase (23-300) U/L Procalcitonin (<0.5) ng/mL Urine Color Urine Appearance Urine pH (4.5-8.0) Ur Specific [place] (1.000-1.035) Urine Protein (Negative) Urine Glucose (UA) (Negative) g/dL Urine Ketones (NEGATIVE) Urine Occult Blood (Negative) Urine Nitrate (Negative) Urine Bilirubin (NEGATIVE) Urine Urobilinogen (0.2) E.U./dL Ur Leukocyte Esterase (NEGATIVE) Urine RBC (0-5/HPF) Urine WBC (0-5/HPF) Amorphous Sediment Urine Bacteria (None) Ur Culture Indicated? Chlamy pneumoniae PCR Not detected (Not Detect) Adenovirus (PCR) Not detected (Not Detect) B. pertussis DNA (PCR) Not detected (Not Detecte) B.parapertussis DNA PCR Not detected (Not Detecte) Coronavirus OC43 (PCR) Not detected (Not Detect) Coronavirus HKU1 (PCR) Not detected (Not Detect) Coronavirus 229E (PCR) Not detected (Not Detect) SARS-CoV-2 (PCR) Not detected (Not Detecte) Coronavirus NL63 (PCR) Not detected (Not Detect) Human Metapneumovir PCR Not detected (Not Detect) Influenza Type A (PCR) Not detected (Not Detect) Influenza Type B (PCR) Not detected (Not Detect) M. pneumoniae (PCR) Not detected (Not Detect) Parainfluenza 1 (PCR) Not detected (Not Detect) Parainfluenza 2 (PCR) Not detected (Not Detect) Parainfluenza 3 (PCR) Not detected (Not Detect) Parainfluenza 4 (PCR) Not detected (Not Detect) RSV (PCR) Not detected (Not Detect) Entero/Rhino (PCR) Not detected (Not Detect) 03/10/23 03/10/23 03/10/23 Range/Units 13:40 13:40 13:40 WBC (4.5-11.0) X10^3/uL RBC (4.5-5.9) X10^6/uL Hgb (13.5-17.5) g/dL Hct (41-53) % MCV (80-100) fL MCH (26-34) PG MCHC (30-36) % RDW (11.6-14.8) % Plt Count (150-400) X10^3/uL Neut % (Auto) (50-75) % Lymph % (Auto) (25-40) % [place] % (Auto) (3-14) % Eos % (Auto) (2-4) % Baso % (Auto) (0-2) % Neut # (Auto) (7341-9987) /uL Lymph # (Auto) (0260-3218) /uL [place] # (Auto) (0-900) /uL Eos # (Auto) (0-450) /uL Baso # (Auto) (0-100) /uL PT 12.2 (10.1-12.7) SECONDS INR 1.1 (0.9-1.3) APTT 29 (26-36) SECONDS ABG pH (7.35-7.45) ABG pCO2 (35-45) mmHg ABG pO2 (80-100) mmHg ABG HCO3 (23-27) mmol/L ABG Total CO2 (23-27) mmol/L ABG O2 Saturation (95-100) % ABG Base Excess (-2-3) mmol/L FiO2 Sodium 133 L (137-145) mmol/L Potassium 4.3 (3.4-5.1) mmol/L Chloride 99 (98-107) mmol/L Carbon Dioxide 26 (22-32) mmol/L BUN 21 H (9-20) mg/dL Creatinine 1.12 (0.66-1.25) mg/dL Estimated GFR > 60 (>60) mL/min BUN/Creatinine Ratio 18.8 (6-22) Glucose 276 H (80-110) mg/dL Lactate 1.1 (0.7-2.1) mmol/L Calcium 9.8 (8.4-10.2) mg/dL Total Bilirubin 0.7 (0.2-1.3) mg/dL AST 26 (17-59) IU/L ALT 28 (<50) IU/L Alkaline Phosphatase 69 (38-126) U/L Total Creatine Kinase (55-170) U/L CK-MB (CK-2) (<2.37) ng/mL CK-MB (CK-2) Rel Index (1.5-5.0) % Troponin I (0.01-0.034) ng/mL NT-Pro-B Natriuret Pep (<450) pg/mL Total Protein 7.7 (6.3-8.2) g/dL Albumin 4.6 (3.5-5.0) g/dL Globulin 3.1 (1.7-4.1) g/dL Albumin/Globulin Ratio 1.5 (1.0-2.8) Lipase 129 (23-300) U/L Procalcitonin 0.07 (<0.5) ng/mL Urine Color Urine Appearance Urine pH (4.5-8.0) Ur Specific [place] (1.000-1.035) Urine Protein (Negative) Urine Glucose (UA) (Negative) g/dL Urine Ketones (NEGATIVE) Urine Occult Blood (Negative) Urine Nitrate (Negative) Urine Bilirubin (NEGATIVE) Urine Urobilinogen (0.2) E.U./dL Ur Leukocyte Esterase (NEGATIVE) Urine RBC (0-5/HPF) Urine WBC (0-5/HPF) Amorphous Sediment Urine Bacteria (None) Ur Culture Indicated? Chlamy pneumoniae PCR (Not Detect) Adenovirus (PCR) (Not Detect) B. pertussis DNA (PCR) (Not Detecte) B.parapertussis DNA PCR (Not Detecte) Coronavirus OC43 (PCR) (Not Detect) Coronavirus HKU1 (PCR) (Not Detect) Coronavirus 229E (PCR) (Not Detect) SARS-CoV-2 (PCR) (Not Detecte) Coronavirus NL63 (PCR) (Not Detect) Human Metapneumovir PCR (Not Detect) Influenza Type A (PCR) (Not Detect) Influenza Type B (PCR) (Not Detect) M. pneumoniae (PCR) (Not Detect) Parainfluenza 1 (PCR) (Not Detect) Parainfluenza 2 (PCR) (Not Detect) Parainfluenza 3 (PCR) (Not Detect) Parainfluenza 4 (PCR) (Not Detect) RSV (PCR) (Not Detect) Entero/Rhino (PCR) (Not Detect) 03/10/23 03/10/23 03/10/23 Range/Units 13:40 15:47 16:24 WBC (4.5-11.0) X10^3/uL RBC (4.5-5.9) X10^6/uL Hgb (13.5-17.5) g/dL Hct (41-53) % MCV (80-100) fL MCH (26-34) PG MCHC (30-36) % RDW (11.6-14.8) % Plt Count (150-400) X10^3/uL Neut % (Auto) (50-75) % Lymph % (Auto) (25-40) % [place] % (Auto) (3-14) % Eos % (Auto) (2-4) % Baso % (Auto) (0-2) % Neut # (Auto) (6395-6393) /uL Lymph # (Auto) (5855-1304) /uL [place] # (Auto) (0-900) /uL Eos # (Auto) (0-450) /uL Baso # (Auto) (0-100) /uL PT (10.1-12.7) SECONDS INR (0.9-1.3) APTT (26-36) SECONDS ABG pH (7.35-7.45) ABG pCO2 (35-45) mmHg ABG pO2 (80-100) mmHg ABG HCO3 (23-27) mmol/L ABG Total CO2 (23-27) mmol/L ABG O2 Saturation (95-100) % ABG Base Excess (-2-3) mmol/L FiO2 Sodium (137-145) mmol/L Potassium (3.4-5.1) mmol/L Chloride (98-107) mmol/L Carbon Dioxide (22-32) mmol/L BUN (9-20) mg/dL Creatinine (0.66-1.25) mg/dL Estimated GFR (>60) mL/min BUN/Creatinine Ratio (6-22) Glucose (80-110) mg/dL Lactate (0.7-2.1) mmol/L Calcium (8.4-10.2) mg/dL Total Bilirubin (0.2-1.3) mg/dL AST (17-59) IU/L ALT (<50) IU/L Alkaline Phosphatase (38-126) U/L Total Creatine Kinase 132 (55-170) U/L CK-MB (CK-2) 1.41 (<2.37) ng/mL CK-MB (CK-2) Rel Index 1.1 L (1.5-5.0) % Troponin I < 0.012 < 0.012 (0.01-0.034) ng/mL NT-Pro-B Natriuret Pep (<450) pg/mL Total Protein (6.3-8.2) g/dL Albumin (3.5-5.0) g/dL Globulin (1.7-4.1) g/dL Albumin/Globulin Ratio (1.0-2.8) Lipase (23-300) U/L Procalcitonin (<0.5) ng/mL Urine Color Yellow Urine Appearance Clear Urine pH 6.0 (4.5-8.0) Ur Specific [place] 1.010 (1.000-1.035) Urine Protein Trace H (Negative) Urine Glucose (UA) 3+ H (Negative) g/dL Urine Ketones Negative (NEGATIVE) Urine Occult Blood Trace-intact (Negative) Urine Nitrate Negative (Negative) Urine Bilirubin Negative (NEGATIVE) Urine Urobilinogen 0.2 (0.2) E.U./dL Ur Leukocyte Esterase Negative (NEGATIVE) Urine RBC 1-5/hpf (0-5/HPF) Urine WBC None seen (0-5/HPF) Amorphous Sediment 1+ Urine Bacteria None seen (None) Ur Culture Indicated? Cult not indicated Chlamy pneumoniae PCR (Not Detect) Adenovirus (PCR) (Not Detect) B. pertussis DNA (PCR) (Not Detecte) B.parapertussis DNA PCR (Not Detecte) Coronavirus OC43 (PCR) (Not Detect) Coronavirus HKU1 (PCR) (Not Detect) Coronavirus 229E (PCR) (Not Detect) SARS-CoV-2 (PCR) (Not Detecte) Coronavirus NL63 (PCR) (Not Detect) Human Metapneumovir PCR (Not Detect) Influenza Type A (PCR) (Not Detect) Influenza Type B (PCR) (Not Detect) M. pneumoniae (PCR) (Not Detect) Parainfluenza 1 (PCR) (Not Detect) Parainfluenza 2 (PCR) (Not Detect) Parainfluenza 3 (PCR) (Not Detect) Parainfluenza 4 (PCR) (Not Detect) RSV (PCR) (Not Detect) Entero/Rhino (PCR) (Not Detect) 03/10/23 Range/Units 16:55 WBC (4.5-11.0) X10^3/uL RBC (4.5-5.9) X10^6/uL Hgb (13.5-17.5) g/dL Hct (41-53) % MCV (80-100) fL MCH (26-34) PG MCHC (30-36) % RDW (11.6-14.8) % Plt Count (150-400) X10^3/uL Neut % (Auto) (50-75) % Lymph % (Auto) (25-40) % [place] % (Auto) (3-14) % Eos % (Auto) (2-4) % Baso % (Auto) (0-2) % Neut # (Auto) (7562-0501) /uL Lymph # (Auto) (0647-1567) /uL [place] # (Auto) (0-900) /uL Eos # (Auto) (0-450) /uL Baso # (Auto) (0-100) /uL PT (10.1-12.7) SECONDS INR (0.9-1.3) APTT (26-36) SECONDS ABG pH 7.41 (7.35-7.45) ABG pCO2 37.8 (35-45) mmHg ABG pO2 57 L (80-100) mmHg ABG HCO3 24 (23-27) mmol/L ABG Total CO2 25 (23-27) mmol/L ABG O2 Saturation 90 L (95-100) % ABG Base Excess -1.0 (-2-3) mmol/L FiO2 21 Sodium (137-145) mmol/L Potassium (3.4-5.1) mmol/L Chloride (98-107) mmol/L Carbon Dioxide (22-32) mmol/L BUN (9-20) mg/dL Creatinine (0.66-1.25) mg/dL Estimated GFR (>60) mL/min BUN/Creatinine Ratio (6-22) Glucose (80-110) mg/dL Lactate (0.7-2.1) mmol/L Calcium (8.4-10.2) mg/dL Total Bilirubin (0.2-1.3) mg/dL AST (17-59) IU/L ALT (<50) IU/L Alkaline Phosphatase (38-126) U/L Total Creatine Kinase (55-170) U/L CK-MB (CK-2) (<2.37) ng/mL CK-MB (CK-2) Rel Index (1.5-5.0) % Troponin I (0.01-0.034) ng/mL NT-Pro-B Natriuret Pep (<450) pg/mL Total Protein (6.3-8.2) g/dL Albumin (3.5-5.0) g/dL Globulin (1.7-4.1) g/dL Albumin/Globulin Ratio (1.0-2.8) Lipase (23-300) U/L Procalcitonin (<0.5) ng/mL Urine Color Urine Appearance Urine pH (4.5-8.0) Ur Specific [place] (1.000-1.035) Urine Protein (Negative) Urine Glucose (UA) (Negative) g/dL Urine Ketones (NEGATIVE) Urine Occult Blood (Negative) Urine Nitrate (Negative) Urine Bilirubin (NEGATIVE) Urine Urobilinogen (0.2) E.U./dL Ur Leukocyte Esterase (NEGATIVE) Urine RBC (0-5/HPF) Urine WBC (0-5/HPF) Amorphous Sediment Urine Bacteria (None) Ur Culture Indicated? Chlamy pneumoniae PCR (Not Detect) Adenovirus (PCR) (Not Detect) B. pertussis DNA (PCR) (Not Detecte) B.parapertussis DNA PCR (Not Detecte) Coronavirus OC43 (PCR) (Not Detect) Coronavirus HKU1 (PCR) (Not Detect) Coronavirus 229E (PCR) (Not Detect) SARS-CoV-2 (PCR) (Not Detecte) Coronavirus NL63 (PCR) (Not Detect) Human Metapneumovir PCR (Not Detect) Influenza Type A (PCR) (Not Detect) Influenza Type B (PCR) (Not Detect) M. pneumoniae (PCR) (Not Detect) Parainfluenza 1 (PCR) (Not Detect) Parainfluenza 2 (PCR) (Not Detect) Parainfluenza 3 (PCR) (Not Detect) Parainfluenza 4 (PCR) (Not Detect) RSV (PCR) (Not Detect) Entero/Rhino (PCR) (Not Detect) Imaging Data Chest x-ray: Radiologist's Impression: PROCEDURE:? XR CHEST 1V ? INDICATIONS:? suspected sepsis ? TECHNIQUE:? One view of the chest was acquired.? ? COMPARISON:? [facility], , XR CHEST 2V, 09/26/2022, 12:05. ? FINDINGS:? ? Surgical changes and devices:? Sternal wires. ? Lungs and pleura:? Lungs are clear.? No pleural effusions or pneumothorax.? ? Mediastinum:? Mediastinal contours appear normal.? Heart size is mildly prominent. ? Bones and chest wall:? No suspicious bony lesions.? Overlying soft tissues appear unremarkable.? ? IMPRESSION:? No acute pulmonary process. ? ? Dictated by: Cinthya Mcbride M.D. on 03/10/2023 at 14:06 ? ? Approved by: Cinthya Mcbride M.D. on 03/10/2023 at 14:06 ? CT scan - chest: Radiologist's Impression: PROCEDURE:? CT ANGIO CHEST PE PROTOCOL ? INDICATIONS:? hypoxia ? TECHNIQUE:? After the administration of intravenous contrast, 2 mm thick sections acquired from the pulmonary apices to the posterior costophrenic angles.? 3-dimensional maximum intensity projection (MIP) coronal and sagittal reformats were then acquired through the thorax.? For radiation dose reduction, the following was used:? automated exposure control, adjustment of mA and/or kV according to patient size.? ? COMPARISON:? None. ? FINDINGS:? Image quality:? Excellent.? ? Pulmonary arteries:? Pulmonary arteries are normal in size, and demonstrate no intraluminal filling defects to suggest central pulmonary embolism.? ? Lungs and pleura:? Lungs are clear.? No pleural effusions or pneumothorax.? Central and peripheral airways are patent.? ? Mediastinum:? Heart size is normal, without pericardial effusion.? No mediastinal or hilar adenopathy.? Thoracic aorta is normal in caliber and enhancement.? Esophagus is normal in caliber, without hiatal hernia.? ? Bones and chest wall:? No suspicious bony lesions.? Ribs and thoracic spine appear intact throughout.? Thyroid gland is unremarkable.? No axillary or supraclavicular adenopathy.? ? Abdomen:? Partially visualized liver appears enlarged.? Otherwise, visualized upper abdominal solid organs appear normal in the early arterial phase of enhancement.? ? IMPRESSION:? ? Lungs are clear.? No pulmonary embolism. ? ? Dictated by: Cinthya Mcbride M.D. on 03/10/2023 at 16:09 ? ? ECG Data Interpretation: Normal sinus rhythm rate 68 HI interval 180 QRS [address] changes MDM Narrative Medical decision making narrative: Patient 82-year-old male having conversational dyspnea and obvious tachypnea but not hypoxic. Lungs relatively clear. BNP is negative chest x-ray is negative respiratory panel is negative. No evidence of pneumonia or infection. He is no leukocytosis or fever. Troponin is also negative without any EKG changes no evidence of acute coronary syndrome. CT angio is negative for pulmonary embolism or pneumonia. Patient's uvula is swollen but not causing airway compromise. Is given dexamethasone. And IV fluids. No need for antibiotics at this time he is not septic. I suspect uvulitis. He is tolerating fluids. He was put on high-flow for his tachypnea which did help but he did not need much oxygen support. Overall doing much better. Blood work does not show significant leukocytosis or anemia, sodium is 133 no other electrolyte abnormality, no LETICIA glucose 2762- troponins x2. Patient is having some mild infectious like symptoms, but does not have any evidence of sepsis. I suspect a respiratory virus even though his respiratory panel is negative causing the uvulitis. Given dexamethasone sending him home on prednisone, also started on augmentin. Strict return precautions Discharge Plan Departure Patient Disposition: Home Clinical Impression: Uvulitis Instructions: DI for Uvulitis Activity Restrictions/Additional Instructions: *You have been diagnosed with uvulitis *What to do: At this time her uvula is swollen. Hopefully the dexamethasone helps. Please continue to stay hydrated monitor very closely. *Continue to take medications as directed Prednisone 40 mg once a day starting tomorrow her 5 days Augmentin 875 mg twice a day for 7 days *Follow up with your primary care provider in 2-3 days or call [phone] *Return to ER if you should have increased difficulty swallowing, difficulty breathing, or any new, worsening or concerning symptoms Prescriptions: New amoxicillin-pot clavulanate 875-125 mg tablet 1 tab PO BID Qty: 14 0RF prednisone 20 mg tablet 40 mg PO DAILY Qty: 10 0RF No Action aspirin 81 MG tablet,delayed release (DR/EC) 81 mg PO QDAY Qty: 0 losartan-hydrochlorothiazide 50-12.5 mg tablet 1 tab PO DAILY Qty: 90 3RF atorvastatin 40 mg tablet 40 mg PO DAILY vital red PO DAILY L. acidophilus/Bifid. animalis [Daily Probiotic] 1 cap PO DAILY cyanocobalamin (vitamin B-12) [Vitamin B-12] 1,000 mcg Tablet 1,000 mcg PO DAILY codeine-guaifenesin [Guaifenesin AC] 10-100 mg/5 mL liquid 5 ml PO Q6H PRN (Reason: cough) Qty: 120 0RF (DME) Respironics DreamStation 2 See Rx Instructions .Route .MEDSUPPLY Rx Instructions: CPAP Min: 8 Max: 16 DME: [employer] Referrals: Malick Lerma MD [Primary Care Provider] - Stand Alone Forms: Patient Portal/API
--- NOTE | 2023-03-10 13:55 | PC.NURSE ---
Pt arrives with . Ambulatory after being sent from [facility]. Increased WOB--tachypneic 25-30 RR. 95% RA. Hot to touch. temp 98.6 oral. states was febrile at home. states he developed a cold over the last 2-3 days. Pt with h/o CABG x 5. No thinners or diuretics. Takes ASA daily. Placed on 2L NC and advanced to HFNC 50L 35%. Tolerating well and appears more comfortable. Wears CPAP at home.
[2023-03-10 14:10] LABS: Add Manual Diff / Slide Review NO; Basophils Absolute Auto 0 /uL (0-100); Basophils Percent Auto 0.4 % (0-2); Eosinophils Absolute Auto 100 /uL (0-450); Eosinophils Percent Auto 1.2 % (2-4); Hemoglobin 12.7 g/dL (13.5-17.5); Lymphocytes Absolute Auto 1200 /uL (1100-4500); Lymphocytes Percent Auto 10.7 % (25-40); Mean Corpuscular HGB Conc 35.2 % (30-36); Mean Corpuscular Volume 88.1 fL (80-100); Monocytes Absolute Auto 1200 /uL (0-900); Monocytes Percent Auto 11.3 % (3-14); Neutrophils Absolute Auto 8400 /uL (1500-7000); Neutrophils Percent Auto 76.4 % (50-75); Platelet Count 152 X10^3/uL (150-400); Red Blood Cell Count 4.09 X10^6/uL (4.5-5.9); Red Cell Distribution Width 13.6 % (11.6-14.8); White Blood Cell Count 10.9 X10^3/uL (4.5-11.0)
[2023-03-10 14:16] LABS: INR 1.1 (0.9-1.3); Prothrombin Time 12.2 SECONDS (10.1-12.7)
[2023-03-10 14:18] LABS: PTT Partial Thromboplastin Tim 29 SECONDS (26-36)
[2023-03-10 14:20] LABS: Creatine Kinase 132 U/L (55-170)
[2023-03-10 14:21] LABS: Lactate (Lactic Acid) 1.1 mmol/L (0.7-2.1)
[2023-03-10 14:22] LABS: Alanine Aminotransferase 28 IU/L (<50); Albumin 4.6 g/dL (3.5-5.0); Albumin Globulin Ratio 1.5 (1.0-2.8); Alkaline Phosphatase 69 U/L (38-126); Aspartate Aminotransferase 26 IU/L (17-59); BUN Creatinine Ratio 18.8 (6-22); Bilirubin Total 0.7 mg/dL (0.2-1.3); Blood Urea Nitrogen 21 mg/dL (9-20); Calcium 9.8 mg/dL (8.4-10.2); Carbon Dioxide 26 mmol/L (22-32); Chloride 99 mmol/L (98-107); Estimated Glomerular Filt Rate > 60 mL/min (>60); Globulin 3.1 g/dL (1.7-4.1); Glucose 276 mg/dL (80-110); HEMOLYSIS < 15 (0-50); Lipase 129 U/L (23-300); Potassium 4.3 mmol/L (3.4-5.1); Sodium 133 mmol/L (137-145); Total Protein 7.7 g/dL (6.3-8.2)
[2023-03-10 14:31] LABS: NT-proBNP (BNP-Adult 18+) 233 pg/mL (<450)
[2023-03-10 14:33] LABS: Troponin I < 0.012 ng/mL (0.01-0.034)
[2023-03-10 14:35] LABS: CKMB % Relative Index 1.1 % (1.5-5.0); Creatine Kinase MB 1.41 ng/mL (<2.37)
[2023-03-10 14:39] LABS: Adenovirus Not Detected (Not Detect); B. parapertussis Not Detected (Not Detecte); Bordetella pertussis Not Detected (Not Detecte); Chlamydophila pneumoniae Not Detected (Not Detect); Coronavirus 229E Not Detected (Not Detect); Coronavirus HKU1 Not Detected (Not Detect); Coronavirus NL 63 Not Detected (Not Detect); Coronavirus OC43 Not Detected (Not Detect); Human Metapneumovirus Not Detected (Not Detect); Human Rhinovirus/Enterovirus Not Detected (Not Detect); Influenza A Not Detected (Not Detect); Influenza B Not Detected (Not Detect); Mycoplasma pneumoniae Not Detected (Not Detect); Parainfluenza Virus 1 Not Detected (Not Detect); Parainfluenza Virus 2 Not Detected (Not Detect); Parainfluenza Virus 3 Not Detected (Not Detect); Parainfluenza Virus 4 Not Detected (Not Detect); Respiratory Syncytial Virus Not Detected (Not Detect); SARS- CoV-2 Not Detected (Not Detecte)
[2023-03-10 14:39] LABS: Procalcitonin 0.07 ng/mL (<0.5)
--- NOTE | 2023-03-10 15:15 | DI.CT.S_ITS ---
PROCEDURE: CT ANGIO CHEST PE PROTOCOL INDICATIONS: hypoxia TECHNIQUE: After the administration of intravenous contrast, 2 mm thick sections acquired from the pulmonary apices to the posterior costophrenic angles. 3-dimensional maximum intensity projection (MIP) coronal and sagittal reformats were then acquired through the thorax. For radiation dose reduction, the following was used: automated exposure control, adjustment of mA and/or kV according to patient size. COMPARISON: None. FINDINGS: Image quality: Excellent. Pulmonary arteries: Pulmonary arteries are normal in size, and demonstrate no intraluminal filling defects to suggest central pulmonary embolism. Lungs and pleura: Lungs are clear. No pleural effusions or pneumothorax. Central and peripheral airways are patent. Mediastinum: Heart size is normal, without pericardial effusion. No mediastinal or hilar adenopathy. Thoracic aorta is normal in caliber and enhancement. Esophagus is normal in caliber, without hiatal hernia. Bones and chest wall: No suspicious bony lesions. Ribs and thoracic spine appear intact throughout. Thyroid gland is unremarkable. No axillary or supraclavicular adenopathy. Abdomen: Partially visualized liver appears enlarged. Otherwise, visualized upper abdominal solid organs appear normal in the early arterial phase of enhancement. IMPRESSION: Lungs are clear. No pulmonary embolism. Dictated by: Cinthya Mcbride M.D. on 03/10/2023 at 16:09 Approved by: Cinthya Mcbride M.D. on 03/10/2023 at 16:10
[2023-03-10 16:24] LABS: Troponin I < 0.012 ng/mL (0.01-0.034)
[2023-03-10] MEDS: ALBUTEROL/IPRATROPIUM 3 ML AMPUL INH (16:30)
[2023-03-10 16:41] LABS: Appearance Urine UA CLEAR; Bilirubin Urine UA NEGATIVE (NEGATIVE); Color Urine UA YELLOW; Glucose Urine UA 3+ g/dL (Negative); Ketones Urine UA NEGATIVE (NEGATIVE); Leukocyte Esterase Urine UA NEGATIVE (NEGATIVE); Nitrite Urine UA NEGATIVE (Negative); Occult Blood Urine UA TRACE-INTACT (Negative); Protein Urine UA TRACE (Negative); Urobilinogen Urine UA 0.2 E.U./dL (0.2)
[2023-03-10 16:48] LABS: Amorphous Sediment Urine 1+; Bacteria Urine None Seen; Culture Indicated Urine Cult Not Indicated; RBC Urine 1-5/HPF (0-5/HPF); WBC Urine None Seen (0-5/HPF)
[2023-03-10 17:03] LABS: pH ABG 7.41 (7.35-7.45)
[2023-03-10 17:04] LABS: Fractionated Inspired Oxygen 21; HCO3 ABG 24 mmol/L (23-27); Oxygen Saturation ABG 90 % (95-100); PCO2 ABG 37.8 mmHg (35-45); PO2 ABG 57 mmHg (80-100); TCO2 ABG 25 mmol/L (23-27)
[2023-03-10] MEDS: SODIUM CHLORIDE 0.9% 1,000 ML 1000 ML IV (17:38)
[2023-03-10] MEDS: DEXAMETHASONE 10 MG/ML VIAL IV (17:38)
--- NOTE | 2023-03-10 17:40 | PC.NURSE ---
Pt removed from [facility] to see how well RA could be tolerated and ABG obtained. Dr Enciso at bedside. Pt noted to have increased uvula swelling on oral assessment. Pt remains off [facility] and IV fluids infusing per order and dexamethasone given. Resting in bed. On cell phone and conversing with . airway patent. 95% RA
[2023-03-10] MEDS: AMOXICILLIN/CLAV 875/125 MG 1 TAB PO (18:44)
== END 2023-03-10 18:45 | disposition home or self-care (01) ==
PROVIDERS: Emergency Provider Emergency Medicine; PCP Internal Medicine
DX: K12.2 Cellulitis and abscess of mouth (principal); R06.02 Shortness of breath; Z20.822 Contact with and (suspected) exposure to COVID-19
CPT/HCPCS: 36415; 36600; 71045; 71275; 80053; 81001; 82550; 82553; 82805; 83605; 83690; 83880; 84145; 84484; 85025; 85610; 85730; 87040; 87633; 93005; 94640; 96361; 96374; 99284; 99285; J1100

== ENCOUNTER → 2023-03-13 15:09 | Outpatient (CLI) | payer MEDICARE, SELFPAY ==
[2023-03-14 12:30] LABS: x Labcorp Estim. Avg Glu (eAG) 192 mg/dL (.); x Labcorp Hemoglobin A1c 8.3 % (4.8-5.6)
== END ==
PROVIDERS: PCP Internal Medicine; Referring Provider Internal Medicine; Visit Provider Internal Medicine
DX: E11.69 Type 2 diabetes mellitus with other specified complication (principal)
CPT/HCPCS: 36415; 83036

== ENCOUNTER → 2023-03-27 07:44 | Outpatient (CLI) | payer MEDICARE, SELFPAY ==
--- NOTE | 2023-04-02 10:30 | PM.PFT.1 ---
Pulmonary Function Test Referral & Results Date Patient Seen: 03/27/23 Results: The spirometry demonstrates an FVC of 2.27 L which is 69% of predicted. The FEV1 was measured at 1.35 L which is 59% of predicted. The FEV1/FVC ratio was 60 which is 84% of predicted. Following the administration of bronchodilator there was a 31% improvement in FEV1 and a 128% improvement in FEF 25-75%. Lung volumes show an SVC of 2.77 L which is 73% of predicted. The diffusing capacity was measured at 23.07 which is 85% of predicted. The maximum voluntary ventilation was reduced Interpretation: This study demonstrates moderate obstructive lung disease based on reduction FEV1. There is evidence of significant benefit following bronchodilator as above There is a [id number] reduction in lung volumes suggesting the presence of [id number] restrictive lung disease There is a minimal reduction diffusing capacity suggesting the possibility of disease at the capillary alveolar level Clinical correlation suggested
== END ==
PROVIDERS: PCP Internal Medicine; Referring Provider Internal Medicine; Visit Provider Internal Medicine
DX: R06.02 Shortness of breath (principal); J98.8 Other specified respiratory disorders
CPT/HCPCS: 94060; 94726; 94729

== ENCOUNTER → 2023-03-28 08:12 | Outpatient (CLI) | payer MEDICARE, SELFPAY ==
--- NOTE | 2023-03-28 | DI.RAD.S_ITS ---
PROCEDURE: FL UPPER GI SMALL BOWEL W AIR COMPARISON: [facility], CT, KUB - CT (PNL), 11/20/2013, 10:21. [facility], CT, CT ANGIO CHEST PE PROTOCOL, 03/10/2023, 15:25. INDICATIONS: Dysphagia, unspecified FINDINGS: Post median sternotomy and CABG. Mild scoliosis. Small hiatal hernia. There is mild delay of passage of the barium tablet at the gastroesophageal junction. There is esophageal dysmotility with tertiary contractions and sloaching of contrast within the esophagus. This is most pronounced in the prone position. No definite stricture. No diverticulum or ulcer seen. No gastroesophageal reflux is elicited with provocative maneuvers. IMPRESSION: Moderate esophageal dysmotility. 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 Small hiatal hernia. No definite stricture. No diverticulum. No gastroesophageal reflux elicited. Dictated by: Devante Cruz M.D. on 03/28/2023 at 10:34 Approved by: Devante Cruz M.D. on 03/28/2023 at 10:41
== END ==
PROVIDERS: PCP Internal Medicine; Referring Provider Internal Medicine; Visit Provider Internal Medicine
DX: K22.4 Dyskinesia of esophagus (principal); K44.9 Diaphragmatic hernia without obstruction or gangrene
CPT/HCPCS: 74246; 74248

== ENCOUNTER → 2023-05-27 09:19 | Outpatient (CLI) | payer MEDICARE, SELFPAY ==
[2023-05-27 10:26] LABS: HEMOLYSIS < 15 (0-50); Iron 74 ug/dL (49-181)
[2023-05-27 10:30] LABS: C-Reactive Protein Quant < 0.5 mg/dL (<1.0)
[2023-05-27 10:38] LABS: Percent Iron Saturation 20 % (20-50); Total Iron Binding Capacity 375 ug/dL (261-462); Transferrin 267 mg/dL (206-381)
[2023-05-27 11:03] LABS: Ferritin 74 ng/mL (18-464)
== END ==
PROVIDERS: PCP Internal Medicine; Referring Provider Pediatrics; Visit Provider Pediatrics
DX: D50.9 Iron deficiency anemia, unspecified (principal); G47.61 Periodic limb movement disorder; G25.81 Restless legs syndrome
CPT/HCPCS: 36415; 82728; 83540; 83550; 86140

== ENCOUNTER → 2023-07-24 09:02 | Outpatient (CLI) | payer MEDICARE, SELFPAY ==
[2023-07-24 09:51] LABS: Hematocrit 36.5 % (41-53); Hemoglobin 12.7 g/dL (13.5-17.5); Mean Corpuscular HGB Conc 34.8 % (30-36); Mean Corpuscular Hemoglobin 30.7 PG (26-34); Mean Corpuscular Volume 88.2 fL (80-100); Platelet Count 177 X10^3/uL (150-400); Red Blood Cell Count 4.14 X10^6/uL (4.5-5.9); Red Cell Distribution Width 13.4 % (11.6-14.8); White Blood Cell Count 5.1 X10^3/uL (4.5-11.0)
[2023-07-24 09:57] LABS: Hemoglobin A1C% w Est Avg Glu 7.5 % (4.0-6.0)
[2023-07-24 11:51] LABS: Creatinine Urine Random 86.1 mg/dL
[2023-07-24 11:55] LABS: Microalbumi Creatinin Ratio Ur 19.7 ug/mg CR (<30); Microalbumin Urine Random 1.7 mg/dL (0-1.6)
[2023-07-24 12:15] LABS: Vitamin B12 929 pg/mL (239-931)
== END ==
PROVIDERS: PCP Internal Medicine; Referring Provider Internal Medicine; Visit Provider Internal Medicine
DX: E11.69 Type 2 diabetes mellitus with other specified complication (principal); E53.8 Deficiency of other specified B group vitamins; D64.9 Anemia, unspecified; E78.5 Hyperlipidemia, unspecified; I10 Essential (primary) hypertension
CPT/HCPCS: 36415; 82043; 82570; 82607; 83036; 85027

== ENCOUNTER → 2023-08-15 07:57 | Outpatient (CLI) | payer MEDICARE, SELFPAY ==
[2023-08-15 08:47] LABS: Alanine Aminotransferase 25 IU/L (<50); Albumin 4.3 g/dL (3.5-5.0); Albumin Globulin Ratio 1.5 (1.0-2.8); Alkaline Phosphatase 59 U/L (38-126); Aspartate Aminotransferase 25 IU/L (17-59); BUN Creatinine Ratio 19.5 (6-22); Bilirubin Total 0.6 mg/dL (0.2-1.3); Blood Urea Nitrogen 22 mg/dL (9-20); Calcium 9.9 mg/dL (8.4-10.2); Carbon Dioxide 28 mmol/L (22-32); Chloride 94 mmol/L (98-107); Cholesterol 120 mg/dL (140-199); Estimated Glomerular Filt Rate > 60 mL/min (>60); Globulin 2.8 g/dL (1.7-4.1); Glucose 160 mg/dL (80-110); HDL Cholesterol 37 mg/dL (40-60); HEMOLYSIS < 15 (0-50); LDL Cholesterol Calculated 51 mg/dL (<100); Magnesium 2.2 mg/dL (1.6-2.3); Potassium 4.5 mmol/L (3.4-5.1); Sodium 129 mmol/L (137-145); Total Protein 7.1 g/dL (6.3-8.2); Triglycerides 158 mg/dL (35-150)
== END ==
PROVIDERS: PCP Internal Medicine; Referring Provider Specialist; Visit Provider Specialist
DX: I10 Essential (primary) hypertension (principal); E78.5 Hyperlipidemia, unspecified
CPT/HCPCS: 36415; 80053; 80061; 83735

== ENCOUNTER → 2023-08-29 08:04 | Outpatient (CLI) | payer MEDICARE, SELFPAY ==
[2023-08-29 09:36] LABS: Alanine Aminotransferase 22 IU/L (<50); Albumin 4.4 g/dL (3.5-5.0); Albumin Globulin Ratio 1.4 (1.0-2.8); Aspartate Aminotransferase 30 IU/L (17-59); BUN Creatinine Ratio 19.6 (6-22); Blood Urea Nitrogen 21 mg/dL (9-20); Calcium 10.1 mg/dL (8.4-10.2); Carbon Dioxide 26 mmol/L (22-32); Chloride 95 mmol/L (98-107); Estimated Glomerular Filt Rate > 60 mL/min (>60); Globulin 3.2 g/dL (1.7-4.1); Glucose 143 mg/dL (80-110); HEMOLYSIS < 15 (0-50); Magnesium 2.2 mg/dL (1.6-2.3); Potassium 4.5 mmol/L (3.4-5.1); Sodium 131 mmol/L (137-145); Total Protein 7.6 g/dL (6.3-8.2)
[2023-08-29 10:16] LABS: Alkaline Phosphatase 51 U/L (38-126); Bilirubin Total 0.6 mg/dL (0.2-1.3)
[2023-09-02 08:14] LABS: Cholesterol, Total 127 mg/dL (100-199); HDL-Cholesterol 43 mg/dL (>39); HDL-Particle (Total) 32.4 umol/L (>=30.5); LDL Particle 662 nmol/L (<1000); LDL Size 20.5 nm (>20.5); LDL-Cholsterol 65 mg/dL (0-99); LP-IR Score 69 (<=45); Small LDL- Particle 316 nmol/L (<=527); Triglycerides 101 mg/dL (0-149)
== END ==
PROVIDERS: PCP Internal Medicine; Referring Provider Specialist; Visit Provider Specialist
DX: E87.1 Hypo-osmolality and hyponatremia (principal); E78.5 Hyperlipidemia, unspecified
CPT/HCPCS: 36415; 80053; 80061; 83704; 83735

== ENCOUNTER → 2023-11-10 09:20 | Outpatient (CLI) | payer OTHER, SELFPAY ==
[2023-11-10 11:15] LABS: Hematocrit 39.1 % (41-53); Hemoglobin 13.5 g/dL (13.5-17.5); Mean Corpuscular HGB Conc 34.6 % (30-36); Mean Corpuscular Hemoglobin 31.1 PG (26-34); Platelet Count 162 X10^3/uL (150-400); Red Blood Cell Count 4.35 X10^6/uL (4.5-5.9); Red Cell Distribution Width 13.5 % (11.6-14.8); White Blood Cell Count 4.7 X10^3/uL (4.5-11.0)
[2023-11-10 11:37] LABS: Hemoglobin A1C% w Est Avg Glu 7.3 % (4.0-6.0)
[2023-11-10 11:43] LABS: Alanine Aminotransferase 25 IU/L (<50); Albumin 4.8 g/dL (3.5-5.0); Albumin Globulin Ratio 1.5 (1.0-2.8); Alkaline Phosphatase 60 U/L (38-126); Aspartate Aminotransferase 27 IU/L (17-59); BUN Creatinine Ratio 20.8 (6-22); Bilirubin Total 0.7 mg/dL (0.2-1.3); Blood Urea Nitrogen 22 mg/dL (9-20); Calcium 10.7 mg/dL (8.4-10.2); Carbon Dioxide 27 mmol/L (22-32); Chloride 100 mmol/L (98-107); Estimated Glomerular Filt Rate > 60 mL/min (>60); Globulin 3.2 g/dL (1.7-4.1); Glucose 173 mg/dL (80-110); HEMOLYSIS < 15 (0-50); Potassium 5.2 mmol/L (3.4-5.1); Sodium 136 mmol/L (137-145)
[2023-11-10 12:08] LABS: TSH w/ Reflex to FT4 1.94 uIU/mL (0.47-4.68)
== END ==
PROVIDERS: PCP Internal Medicine; Referring Provider Internal Medicine; Visit Provider Internal Medicine
DX: R55 Syncope and collapse (principal); E11.69 Type 2 diabetes mellitus with other specified complication; E78.5 Hyperlipidemia, unspecified
CPT/HCPCS: 36415; 80053; 83036; 84443; 85027

== ENCOUNTER → 2023-11-20 08:51 | Outpatient (CLI) | payer MEDICARE, OTHER, SELFPAY | PROVIDERS: PCP Internal Medicine; Referring Provider Internal Medicine; Visit Provider Internal Medicine | DX: R55 Syncope and collapse (principal) | CPT/HCPCS: 93246 ==

== ENCOUNTER → 2024-02-24 14:12 | Outpatient (CLI) | payer MEDICARE, SELFPAY ==
[2024-02-24 15:15] LABS: BUN Creatinine Ratio 18.2 (6-22); Blood Urea Nitrogen 18 mg/dL (9-20); Calcium 10.5 mg/dL (8.4-10.2); Carbon Dioxide 28 mmol/L (22-32); Chloride 102 mmol/L (98-107); Estimated Glomerular Filt Rate > 60 mL/min (>60); Glucose 166 mg/dL (80-110); HEMOLYSIS 16 (0-50); Potassium 4.3 mmol/L (3.4-5.1); Sodium 137 mmol/L (137-145)
[2024-02-24 17:31] LABS: Hemoglobin A1C% w Est Avg Glu 7.9 % (4.0-6.0)
== END ==
PROVIDERS: PCP Internal Medicine; Referring Provider Internal Medicine; Visit Provider Internal Medicine
DX: E11.69 Type 2 diabetes mellitus with other specified complication (principal); E78.5 Hyperlipidemia, unspecified
CPT/HCPCS: 80048; 83036

== ENCOUNTER → 2024-02-29 13:31 | Outpatient (CLI) | payer MEDICARE, SELFPAY ==
[2024-02-29 14:15] LABS: Influenza A - CEPHEID Flu A NEGATIVE (NEGATIVE); Influenza B - CEPHEID Flu B NEGATIVE (NEGATIVE); Respiratory Syncytial Virus Negative (Negative)
[2024-02-29 14:16] LABS: COVID-19 CEPHEID 4-PLEX PCR Negative (Negative)
== END ==
PROVIDERS: PCP Internal Medicine; Visit Provider Physician Assistant Medical
DX: R05.9 Cough, unspecified (principal)
CPT/HCPCS: 0241U

== ENCOUNTER → 2024-02-29 13:37 | Outpatient (CLI) | payer MEDICARE, SELFPAY ==
--- NOTE | 2024-02-29 13:38 | DI.RAD.S_ITS ---
PROCEDURE: XR CHEST 2V INDICATIONS: Shortness of breath and cough TECHNIQUE: 2 views of the chest were acquired. COMPARISON: [facility], CR, XR CHEST 1V, 03/10/2023, 13:23. [facility], CR, XR CHEST 2V, 09/26/2022, 12:05. FINDINGS: Surgical changes and devices: Sternotomy and left chest wall generator. Lungs and pleura: Lungs are clear. No pleural effusions or pneumothorax. Peribronchial cuffing. Mediastinum: Mediastinal contours are normal. Heart size is normal. Bones and chest wall: No suspicious bony abnormalities. Soft tissues appear unremarkable. Stable elevated right hemidiaphragm. IMPRESSION: Peribronchial cuffing, typically indicating infectious or inflammatory bronchitis. Dictated by: Yury Garcia M.D. on 02/29/2024 at 13:54 Approved by: Yury Garcia M.D. on 02/29/2024 at 13:54
== END ==
PROVIDERS: PCP Internal Medicine; Referring Provider Physician Assistant Medical; Visit Provider Physician Assistant Medical
DX: R06.02 Shortness of breath (principal); R05.9 Cough, unspecified
CPT/HCPCS: 0241U; 71046

== ENCOUNTER → 2024-03-04 06:46 | Outpatient (CLI) | payer MEDICARE, SELFPAY ==
--- NOTE | 2024-03-04 06:47 | DI.ECHO.S_ITS ---
[facility]---------+ [facility] : : [address] : : [place] : : [id number] : : Phone: [phone] Echocardiogram Report + + :Name: TING JOHNSON Study Date: 03/04/2024 Height: 66 in : :[facility] [employer] [facility] ReadingLocation: Weight: 185 lb : : Gender: Male BSA: 1.9 m2 : :: 1940 Age: 83 yrs BP: 165/81 mmHg: :Reason For Study: EXERTIONAL DYSPNEA : :Ordering Physician: STAS, : :GUILLERMINA Performed By: Fortino Angel : :Referring: GUILLERMINA MCCLELLAND : + + Interpretation Summary Left ventricular systolic function remains normal with an estimated ejection fraction of 55 to 60% without any focal wall motion abnormality. There is borderline LVH with a fairly prominent diastolic relaxation abnormality but probable normal filling pressures, although perhaps slightly higher compared to the previous study. The right ventricle remains normal in size with mildly reduced systolic function but appears unchanged from the previous exam. Right ventricular systolic pressure is estimated at 35 mmHg with a CVP of 3 mmHg. Both atria are normal in size and grossly unchanged. There is moderate aortic valve calcific sclerosis that is mildly progressive but without stenosis. There continues to be mild to moderate aortic regurgitation that appears unchanged. There is no other significant valvular abnormality. 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 Procedure: A two-dimensional transthoracic echocardiogram with color flow and Doppler was performed. The study quality was technically adequate. Comparison is made with the echocardiogram of 01/05/2021. The patient was in sinus rhythm with heart rates between 60-66 bpm during the exam. Left Ventricle: The left ventricle is normal in size. The estimated left ventricular end diastolic volume is 131 ml. Left ventricular wall thickness is mildly increased. Left ventricular systolic function appears normal without focal wall motion abnormalities. The ejection fraction is estimated to be 55- 60%. This is unchanged compared to the previous study. Diastolic parameters suggest a relaxation abnormality of the left ventricle, consistent with probable normal filling pressures. This is likely unchanged, perhaps slightly higher compared to the previous study. Right Ventricle: The right ventricle is normal size. Right ventricular systolic function is mildly reduced. This is unchanged compared to the previous study. Atria: The left atrial size is normal. Right atrial size is normal. This is grossly unchanged compared to the previous study. The atrial septum is aneurysmal. Mitral Valve: There is mild mitral annular calcification. There is no mitral valve stenosis. There is trace mitral regurgitation. Aortic Valve: The aortic valve is trileaflet. The aortic valve is moderately calcified. There is mildly reduced leaflet mobility. This is slightly progressive compared to the previous study. There is no aortic valve stenosis. There is mild to moderate aortic regurgitation. This is likely unchanged compared to the previous study. Tricuspid Valve: The tricuspid valve is normal in structure and function. There is no tricuspid stenosis. There is trace tricuspid regurgitation. The right ventricular systolic pressure is estimated to be at least 35 mmHg based on an estimated right atrial pressure of 3 mm Hg. Comparison with the previous study is not possible because this was unable to be assessed on the previous study. Pulmonic Valve: The pulmonic valve is not well visualized. There is no pulmonic valvular stenosis. There is no pulmonic valvular regurgitation. Great Vessels: The aortic root is normal size. The ascending aorta is mild- moderately enlarged. This is unchanged compared to the previous study. The IVC is of normal diameter and collapses greater than 50% with a sniff. This suggests a low right atrial pressure of 3 mm Hg. Pericardium/ Pleura There is no pericardial effusion. There is no pleural effusion. MMode/2D Measurements & Calculations LVIDd: 4.0 cm LVOT diam: 2.3 cm LVIDs: 2.8 cm Ao root diam: 3.1 cm FS: 28.6 % asc Aorta Diam: 3.9 cm IVSd: 1.1 cm LVPWd: 1.2 cm LV hsieh. diameter/BSA (cm/m^2): 2.0 LV sys. diameter/BSA (cm/m^2): 1.5 LA A2 area: 20.1 cm2 RA long axis: 4.8 cm LA A4 area: 16.6 cm2 RA area: 9.1 cm2 LA length (vol): 5.0 cm RA vol: 14.7 ml LA vol: 56.5 ml RA : 7.6 ml/m2 LA vol index: 29.2 ml/m2 IVC diam: 1.2 cm RVD1 (basal): 3.6 cm RVD2 (mid): 3.2 cm TAPSE: 1.5 cm Doppler Measurements & Calculations Ao V2 max: 171.8 cm/sec LVOT Max Robert: 133.7 cm/sec Ao V2 mean: 122.4 cm/sec LV V1 max P.2 mmHg Ao max P.8 mmHg LV V1 VTI: 34.1 cm Ao mean P.6 mmHg LESLY(I,D): 3.4 cm2 Ao V2 VTI: 40.5 cm LESLY(V,D): 3.2 cm2 sev ratio: 0.84 LESLY indexed to BSA (cm^2/m^2): 1.8 AI P1/2t: 461.9 msec AI dec slope: 252.2 cm/sec2 MV E max robert: 92.5 cm/sec TR max robert: 281.8 cm/sec MV A max robert: 120.1 cm/sec TR max P.8 mmHg MV E/A: 0.77 PA V2 max: 133.7 cm/sec Med Peak E' Roebrt: 6.1 cm/sec PA V2 mean: 89.1 cm/sec E/E' med: 15.3 PA mean P.4 mmHg Lat Peak E' Robert: 8.6 cm/sec PA pr(Accel): 36.2 mmHg E/E' lat: 10.7 E/e' average: 13.0 MV dec time: 0.30 sec SV(LVOT): 139.5 ml Reading Physician:12:47 PM
== END ==
PROVIDERS: PCP Internal Medicine; Referring Provider Specialist; Visit Provider Specialist
DX: I34.81 Nonrheumatic mitral (valve) annulus calcification (principal); I35.1 Nonrheumatic aortic (valve) insufficiency; I77.89 Other specified disorders of arteries and arterioles; R06.09 Other forms of dyspnea; R53.83 Other fatigue
CPT/HCPCS: 36415; 84439; 84443; 93306

== ENCOUNTER → 2024-03-04 16:50 | Outpatient (CLI) | payer MEDICARE, SELFPAY ==
[2024-03-04 18:34] LABS: TSH w/ Reflex to FT4 0.14 uIU/mL (0.47-4.68)
[2024-03-04 19:10] LABS: Free T4, Direct Thyroxine 0.77 ng/dL (0.78-2.19)
== END ==
PROVIDERS: PCP Internal Medicine; Referring Provider Nurse Practitioner Family; Visit Provider Nurse Practitioner Family
DX: R53.83 Other fatigue (principal)
CPT/HCPCS: 36415; 84439; 84443; 93306

== ENCOUNTER 2024-04-02 12:41 | Emergency (ER) | payer MEDICARE, SELFPAY ==
[2024-04-02 12:49] VITALS: BP 142/65; PULSE 60; RESP 16; TEMP 36.3; O2SAT 96; BMI 29.3
--- NOTE | 2024-04-02 12:56 | ED_ITS ---
HPI - Extremity Injury (Lower) <Jann Moraes PA-C - Last Filed: 04/02/24 16:12> General Chief Complaint: Extremity Injury, Lower Stated Complaint: r foot pain Time Seen by Provider: 04/02/24 12:56 Mode of arrival: Wheelchair History of Present Illness HPI Narrative: This is a 83-year-old male presents emergency department due to Acute onset right foot pain as of this morning. States that it is an 8/10 in severity. Denies any trauma to the foot or ankle. She states that it hurts. Denies history of gout. States that the pain affects the entirety of his right foot and worsens with movement. States this also mildly swollen. Denies any fevers, pain in the posterior calf, chest pain, shortness of breath, or any other concerning signs or symptoms. Related Data Home Medications Medication Instructions Recorded Confirmed aspirin 81 mg tablet,delayed 81 mg PO QDAY ##0 01/09/12 03/10/24 release cyanocobalamin (vitamin B-12) 1,000 mcg PO DAILY 03/16/21 03/10/24 1,000 mcg tablet (Vitamin B-12) [employer] DreamStation 2 01/10/22 03/10/24 atorvastatin 40 mg tablet 40 mg PO DAILY 09/20/22 03/10/24 vital red PO DAILY 09/20/22 03/10/24 losartan 50 mg tablet 50 mg PO DAILY 09/17/23 03/10/24 magnesium 400 mg PO DAILY 11/10/23 03/10/24 melatonin 1 tab PO BEDTIME PRN 11/10/23 03/10/24 selenium 1 cap PO DAILY 11/10/23 03/10/24 Prevagen 1 tab PO DAILY 02/23/24 03/10/24 ferrous sulfate 325 mg (65 mg 325 mg PO DAILY 02/23/24 03/10/24 iron) tablet (iron) fluticasone 100 mcg-salmeterol 50 1 inh inhalation BEDTIME 03/02/24 03/10/24 mcg/dose blistr powdr for inhalation (Wixela Inhub) Previous Rx's Medication Instructions Recorded albuterol sulfate 90 mcg/actuation 2 puff inhalation Q6H PRN 04/03/23 aerosol inhaler shortness of breath or wheezing #8.5 grams fluticasone propionate 220 1 puff inhalation BID #12 grams 07/24/23 mcg/actuation HFA aerosol inhaler (Flovent HFA) prednisone 10 mg tablet See Rx Instructions .Route 03/02/24 .COMPLEX #20 tabs Allergies Allergy/AdvReac Type Severity Reaction Status Date / Time No Known Drug Allergies Allergy Verified 03/10/24 13:34 Review of Systems <Jann Moraes PA-C - Last Filed: 04/02/24 16:12> Review of Systems Narrative: GENERAL: Denies chills, fatigue, malaise, fever, sweats. HEENT: Denies sinus pain, ear pain, sore throat, difficulty swallowing, dizziness. RESPIRATORY: Denies dyspnea, cough, wheezing, hemoptysis, sputum. CARDIOVASCULAR: Denies chest pain, palpitations, orthopnea, edema, GASTROINTESTINAL: Denies nausea, vomiting, abdominal pain, diarrhea, constipation, melena. : Denies dysuria, frequency, incontinence, hematuria, urinary retention. MUSCULOSKELETAL: Right foot pain, otherwisedenies weakness, joint pain, or bony pain SKIN: Denies rash, skin lesions, or other NEUROLOGIC: Denies weakness, headache, numbness, change in speech, confusion, seizures, incoordination. PSYCHIATRIC: No concerning psychosocial issues. 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 HEAD: Atraumatic. Normocephalic. EYES: Pupils equal round and reactive. Extraocular motions intact. No scleral icterus. No injection or drainage. ENT: Nose without bleeding, purulent drainage. Throat without erythema, tonsillar hypertrophy or exudate. Airway patent. NECK: Trachea midline. Non tender EXTREMITIES: generalized tenderness to palpation to the right foot. 2+ dorsalis pedis and posterior tibialis pulses. Does not appear overly swollen. NEURO: AOx3. SKIN: No rash or erythema of visible areas Initial Vital Signs Initial Vital Signs: Vital Signs Temperature 97.4 F L 04/02/24 12:49 Pulse Rate 60 04/02/24 12:49 Respiratory Rate 16 04/02/24 12:49 Blood Pressure 142/65 H 04/02/24 12:49 Pulse Oximetry 96 04/02/24 12:49 Oxygen Delivery Method Room Air 04/02/24 12:49 <Cindy Enciso DO - Last Filed: 04/03/24 09:52> Initial Vital Signs Initial Vital Signs: Vital Signs Temperature 97.4 F L 04/02/24 12:49 Pulse Rate 60 04/02/24 12:49 Respiratory Rate 16 04/02/24 12:49 Blood Pressure 142/65 H 04/02/24 12:49 Pulse Oximetry 96 04/02/24 12:49 Oxygen Delivery Method Room Air 04/02/24 12:49 Course <KRISTEN Early Last Filed: 04/02/24 16:12> Orders Ordered: ED Orders 04/02/24 12:54 XR ankle RT min 3V Stat XR foot RT min 3V Stat 04/02/24 13:12 US arterial duplex LE RT Stat US periph venous low extrem rt Stat 04/02/24 14:37 CBC Auto Diff [Complete Blood Count AUTO DIFF] Stat CMP [Comprehensive Metabolic Panel] Stat Vital Signs Vital signs: Vital Signs - 8 hr 04/02/24 12:49 Temperature 97.4 F L Pulse Rate 60 Respiratory Rate 16 Blood Pressure 142/65 H Pulse Oximetry 96 Oxygen Delivery Method Room Air <Cindy Enciso DO - Last Filed: 04/03/24 09:52> Orders Ordered: ED Orders 04/02/24 12:54 XR ankle RT min 3V Stat XR foot RT min 3V Stat 04/02/24 13:12 US arterial duplex LE RT Stat US periph venous low extrem rt Stat 04/02/24 14:37 CBC Auto Diff [Complete Blood Count AUTO DIFF] Stat CMP [Comprehensive Metabolic Panel] Stat Vital Signs Vital signs: Vital Signs - 8 hr 04/02/24 12:49 Temperature 97.4 F L Pulse Rate 60 Respiratory Rate 16 Blood Pressure 142/65 H Pulse Oximetry 96 Oxygen Delivery Method Room Air MDM - Extremity Injury (Lower) <Jann Moraes PA-C - Last Filed: 04/02/24 16:12> Lab Data 04/02/24 14:59 04/02/24 14:59 Labs: Lab Results 04/02/24 Range/Units 14:59 WBC 8.2 (4.5-11.0) X10^3/uL RBC 3.69 L (4.5-5.9) X10^6/uL Hgb 11.4 L (13.5-17.5) g/dL Hct 32.7 L (41-53) % MCV 88.5 (80-100) fL MCH 30.9 (26-34) PG MCHC 34.9 (30-36) % RDW 13.6 (11.6-14.8) % Plt Count 212 (150-400) X10^3/uL Neut % (Auto) 57.4 (50-75) % Lymph % (Auto) 19.5 L (25-40) % Smyth % (Auto) 16.1 H (3-14) % Eos % (Auto) 6.4 H (2-4) % Baso % (Auto) 0.6 (0-2) % Neut # (Auto) 4700 (0733-2896) /uL Lymph # (Auto) 1600 (4754-3021) /uL Smyth # (Auto) 1300 H (0-900) /uL Eos # (Auto) 500 H (0-450) /uL Baso # (Auto) 100 (0-100) /uL Sodium 133 L (137-145) mmol/L Potassium 4.6 (3.4-5.1) mmol/L Chloride 101 (98-107) mmol/L Carbon Dioxide 25 (22-32) mmol/L BUN 19 (9-20) mg/dL Creatinine 0.93 (0.66-1.25) mg/dL Estimated GFR > 60 (>60) mL/min BUN/Creatinine Ratio 20.4 (6-22) Glucose 173 H (80-110) mg/dL Calcium 9.5 (8.4-10.2) mg/dL Total Bilirubin 0.6 (0.2-1.3) mg/dL AST 25 (17-59) IU/L ALT 21 (<50) IU/L Alkaline Phosphatase 66 (38-126) U/L Total Protein 7.0 (6.3-8.2) g/dL Albumin 4.4 (3.5-5.0) g/dL Globulin 2.6 (1.7-4.1) g/dL Albumin/Globulin Ratio 1.7 (1.0-2.8) Imaging Data R foot XR : Radiologist's Impression: [address] [address] XRay Report Signed Patient: Reymundo Roberto MR#: [id number] : 1940 Acct:[id number] Age/Sex: 83 / M Date of Service: 04/02/24 Loc: ED Accession Number: [id number] Procedure: XR foot RT min 3V Ordering Provider: Cindy Enciso D.O. PROCEDURE: XR FOOT RT MIN 3V INDICATIONS: right foot swelling TECHNIQUE: 3 views of the foot were acquired. COMPARISON: None. FINDINGS: Bones: No fractures or dislocations. Mild diffuse interphalangeal and moderate 1st MTP joint degeneration. No suspicious bony lesions. Soft tissues: No tibiotalar joint effusion. Achilles tendon appears normal. IMPRESSION: No acute bony abnormality. Dictated by: Curtis Sanches M.D. on 04/02/2024 at 13:52 Approved by: Curtis Sanches M.D. on 04/02/2024 at 13:54 Ankle XR : Radiologist's Impression: [address] [address] XRay Report Signed Patient: Reymundo Roberto MR#: [id number] : 1940 Acct:[id number] Age/Sex: 83 / M Date of Service: 04/02/24 Loc: ED Accession Number: [id number] Procedure: XR ankle RT min 3V Ordering Provider: Cindy Enciso D.O. PROCEDURE: XR ANKLE RT MIN 3V INDICATIONS: right foot swelling TECHNIQUE: 3 views of the ankle were acquired. COMPARISON: None. FINDINGS: Bones: No fractures or dislocations. Ankle mortise is normally aligned. No suspicious bony lesions. Soft tissues: No tibiotalar joint effusion. Achilles tendon appears normal. IMPRESSION: No acute bony abnormality or significant effusion. Dictated by: Curtis Sanches M.D. on 04/02/2024 at 13:52 Approved by: Curtis Sanches M.D. on 04/02/2024 at 13:52 US RLE Arterial : Radiologist's Impression: [place] [address] Ultrasound Report Signed Patient: Reymundo Roberto MR#: [id number] : 1940 Acct:[id number] Age/Sex: 83 / M Date of Service: 04/02/24 Loc: ED Accession Number: [id number] Procedure: US arterial duplex LE RT Ordering Provider: Jann Moraes P.A-C PROCEDURE: US ARTERIAL DUPLEX LE RT INDICATIONS: r/o arterial occlusion TECHNIQUE: Color and pulse Doppler interrogation was performed of the right lower extremity arterial system, with image documentation. COMPARISON: None. FINDINGS: Common femoral artery: 86 cm/sec, with triphasic flow. Deep femoral artery: 59 cm/sec, with triphasic flow. Proximal superficial femoral artery: 104 cm/sec, with triphasic flow. Mid superficial femoral artery: 115 cm/sec, with triphasic flow. Distal superficial femoral artery: 90 cm/sec, with biphasic flow. Popliteal artery: 80 cm/sec, with triphasic flow. Posterior tibial artery: 191 proximally, greater than 500 distally cm/sec, with monophasic flow. Anterior tibial artery/dorsalis pedis: 160/73 cm/sec, with monophasic flow. Gracia-scale imaging description: Atherosclerotic plaques with high-grade stenosis of the posterior tibial artery. IMPRESSION: 1. 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 2. Moderate stenosis of the anterior tibial artery. 3. No significant stenosis of the popliteal or femoral arteries. Dictated by: Curtis Sanches M.D. on 04/02/2024 at 14:59 Approved by: Curtis Sanches M.D. on 04/02/2024 at 15:02 US - DVT: Radiologist's Impression: [address] [address] Ultrasound Report Signed Patient: Reymundo Roberto MR#: [id number] : 1940 Acct:[id number] Age/Sex: 83 / M Date of Service: 04/02/24 Loc: ED Accession Number: [id number] Procedure: US perip venous low extrem rt Ordering Provider: Jann Moraes P.A-C PROCEDURE: US PERIPH VENOUS LOW EXTREM RT INDICATIONS: r/o DVT TECHNIQUE: Real-time imaging, as well as color and pulse Doppler interrogation, were performed of the lower extremity deep veins from the inguinal ligament to the popliteal fossa, with documentation of the visualized calf veins. COMPARISON: None. FINDINGS: The common femoral, femoral, popliteal, and the visualized calf veins are normally compressible, and free of intraluminal thrombus. Color and pulse Doppler demonstrate normal phasic intraluminal flow. There is normal augmentation response to distal compression maneuver. IMPRESSION: No findings of lower extremity deep venous thrombosis. Dictated by: Curtis Sanches M.D. on 04/02/2024 at 15:03 Approved by: Curtis Sanches M.D. on 04/02/2024 at 15:04 [facility] Narrative Medical decision making narrative: ED course: This is a 83-year-old male presents to the emergency department due to acute onset right foot pain. X-rays were negative for fractures. DVT ultrasound negative. Arterial ultrasound ordered which showed high-grade stenosis of the distal posterior tibial artery as well as moderate stenosis of the anterior tibial artery. This was discussed with the vascular team at [facility] who recommended continuing the 81 mg aspirin he takes daily. Patient we will speak to his primary care provider about further follow up and care. On exam there was still good pulses as well as cap refill. Foot was warm to the touch. CC: Right foot pain Complicating co-morbidities: history of coronary artery disease Data collected from: Previous notes Medical records reviewed: Patient was last seen in the emergency department about a year ago due to shortness of breath. History of hyperlipidemia, coronary artery disease with CABG, hypertension, obstructive sleep apnea. History of obesity, prediabetes. Patient was eventually diagnosed with a respiratory virus. Patient was eventually discharged. Differential considered, but not limited to: peripheral arterial disease, DVT, strain Exam documented above, pertinent findings include: contains palpable pulses to the DP and PT Lab Test results independently reviewed as above. Pertinent findings: CBC and CMP showed no significant abnormalities. Patient. Anemic at baseline. No evidence of any kind of acute hyponatremia although sodium mildly decreased. Imaging studies independently reviewed: Arterial ultrasound showed high-grade stenosis of the distal PT artery as well as moderate stenosis of the anterior tibial artery. Scores Used: None MIPS Elements: None Consultations: None Treatments: None Re-evaluations: none Discussion: Discussed plan with the patient was comfortable with the plan Diagnosis: right foot pain Disposition: see below, along with detailed discharge instructions that have been reviewed with patient as well as indications for ED re-evaluation and additional outpatient follow up <Cindy Enciso DO - Last Filed: 04/03/24 09:52> Lab Data Labs: Lab Results 04/02/24 Range/Units 14:59 WBC 8.2 (4.5-11.0) X10^3/uL RBC 3.69 L (4.5-5.9) X10^6/uL Hgb 11.4 L (13.5-17.5) g/dL Hct 32.7 L (41-53) % MCV 88.5 (80-100) fL MCH 30.9 (26-34) PG MCHC 34.9 (30-36) % RDW 13.6 (11.6-14.8) % Plt Count 212 (150-400) X10^3/uL Neut % (Auto) 57.4 (50-75) % Lymph % (Auto) 19.5 L (25-40) % Smyth % (Auto) 16.1 H (3-14) % Eos % (Auto) 6.4 H (2-4) % Baso % (Auto) 0.6 (0-2) % Neut # (Auto) 4700 (5252-8661) /uL Lymph # (Auto) 1600 (8363-8414) /uL Smyth # (Auto) 1300 H (0-900) /uL Eos # (Auto) 500 H (0-450) /uL Baso # (Auto) 100 (0-100) /uL Sodium 133 L (137-145) mmol/L Potassium 4.6 (3.4-5.1) mmol/L Chloride 101 (98-107) mmol/L Carbon Dioxide 25 (22-32) mmol/L BUN 19 (9-20) mg/dL Creatinine 0.93 (0.66-1.25) mg/dL Estimated GFR > 60 (>60) mL/min BUN/Creatinine Ratio 20.4 (6-22) Glucose 173 H (80-110) mg/dL Calcium 9.5 (8.4-10.2) mg/dL Total Bilirubin 0.6 (0.2-1.3) mg/dL AST 25 (17-59) IU/L ALT 21 (<50) IU/L Alkaline Phosphatase 66 (38-126) U/L Total Protein 7.0 (6.3-8.2) g/dL Albumin 4.4 (3.5-5.0) g/dL Globulin 2.6 (1.7-4.1) g/dL Albumin/Globulin Ratio 1.7 (1.0-2.8) Discharge Plan Departure Patient Disposition: Home Clinical Impression: Foot pain, right Activity Restrictions/Additional Instructions: Thank you for coming to the [facility] Emergency Department today. as we discussed the x-ray showed no evidence of any fractures. The ultrasound and check for blood clots was negative as well. Your arterial ultrasound did show stenosis of your posterior tibial and anterior tibial arteries. Please speak with the primary care provider for possible referral to vascular surgery. I discussed your case with the vascular surgery team at [facility] you stated that you should continuing to take the baby aspirin you are currently taking. You may use ibuprofen as needed for the pain. I recommend elevation and ice to help pain. Please return to the emergency department if you develop any Significant new or worsening pain, lack of sensation in your right foot, your right foot begins to feel cold, or any other concerning signs or symptoms. I hope you feel better soon. Please follow up with your primary care provider within a week if your symptoms continue. If you do not have a primary care provider please contact the [facility] Resource line at [phone]. They will ask some questions about your medical history and help you get set up with a provider in the community. Prescriptions: No Action aspirin 81 MG tablet,delayed release (DR/EC) 81 mg PO QDAY Qty: 0 albuterol sulfate 90 mcg/actuation HFA aerosol inhaler 2 puff inhalation Q6H PRN (Reason: shortness of breath or wheezing) Qty: 8.5 5RF magnesium 400 mg PO DAILY melatonin 1 tab PO BEDTIME PRN selenium 1 cap PO DAILY atorvastatin 40 mg tablet 40 mg PO DAILY vital red PO DAILY fluticasone propionate [Flovent HFA] 220 mcg/actuation HFA aerosol inhaler 1 puff inhalation BID Qty: 12 5RF losartan 50 mg tablet 50 mg PO DAILY ferrous sulfate [iron] 325 mg (65 mg iron) tablet 325 mg PO DAILY Prevagen 1 tab PO DAILY fluticasone propion-salmeterol [Wixela Inhub] 100-50 mcg/dose blister with device 1 inh inhalation BEDTIME prednisone 10 mg tablet See Rx Instructions .Route .COMPLEX Qty: 20 2RF Rx Instructions: 4 tablets daily for 2 days, then 3 tablets daily for 2 days, then 2 tablets daily for 2 days, then 1 tablet daily for 2 days then stop; cyanocobalamin (vitamin B-12) [Vitamin B-12] 1,000 mcg Tablet 1,000 mcg PO DAILY (DME) [employer] DreamStation 2 See Rx Instructions .Route .MEDSUPPLY Rx Instructions: CPAP Min: 8 Max: 16 DME: [employer] Referrals: Malick Lerma MD [Primary Care Provider] - Stand Alone Forms: Patient Portal/API ED Sign-out <Cindy Enciso DO - Last Filed: 04/03/24 09:52> Cosign ED Attending Coskizzyature Attestation: I was available for consultation. I was consulted about this case but did not see and evaluate patient due to significant volume and acuity in the emergency department. Palpable pulses warm foot, there is stenosis and posterior tibialis recommend vascular consultation.
--- NOTE | 2024-04-02 13:12 | DI.US.S_ITS ---
PROCEDURE: US ARTERIAL DUPLEX LE RT INDICATIONS: r/o arterial occlusion TECHNIQUE: Color and pulse Doppler interrogation was performed of the right lower extremity arterial system, with image documentation. COMPARISON: None. FINDINGS: Common femoral artery: 86 cm/sec, with triphasic flow. Deep femoral artery: 59 cm/sec, with triphasic flow. Proximal superficial femoral artery: 104 cm/sec, with triphasic flow. Mid superficial femoral artery: 115 cm/sec, with triphasic flow. Distal superficial femoral artery: 90 cm/sec, with biphasic flow. Popliteal artery: 80 cm/sec, with triphasic flow. Posterior tibial artery: 191 proximally, greater than 500 distally cm/sec, with monophasic flow. Anterior tibial artery/dorsalis pedis: 160/73 cm/sec, with monophasic flow. Gracia-scale imaging description: Atherosclerotic plaques with high-grade stenosis of the posterior tibial artery. IMPRESSION: 1. 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 2. Moderate stenosis of the anterior tibial artery. 3. No significant stenosis of the popliteal or femoral arteries. Dictated by: Curtis Sanches M.D. on 04/02/2024 at 14:59 Approved by: Curtis Sanches M.D. on 04/02/2024 at 15:02
--- NOTE | 2024-04-02 13:12 | DI.US.S_ITS ---
PROCEDURE: US PERIPH VENOUS LOW EXTREM RT INDICATIONS: r/o DVT TECHNIQUE: Real-time imaging, as well as color and pulse Doppler interrogation, were performed of the lower extremity deep veins from the inguinal ligament to the popliteal fossa, with documentation of the visualized calf veins. COMPARISON: None. FINDINGS: The common femoral, femoral, popliteal, and the visualized calf veins are normally compressible, and free of intraluminal thrombus. Color and pulse Doppler demonstrate normal phasic intraluminal flow. There is normal augmentation response to distal compression maneuver. IMPRESSION: No findings of lower extremity deep venous thrombosis. Dictated by: Curtis Sanches M.D. on 04/02/2024 at 15:03 Approved by: Curtis Sanches M.D. on 04/02/2024 at 15:04
[2024-04-02 15:07] LABS: Add Manual Diff / Slide Review NO; Basophils Absolute Auto 100 /uL (0-100); Basophils Percent Auto 0.6 % (0-2); Eosinophils Absolute Auto 500 /uL (0-450); Eosinophils Percent Auto 6.4 % (2-4); Hematocrit 32.7 % (41-53); Hemoglobin 11.4 g/dL (13.5-17.5); Lymphocytes Absolute Auto 1600 /uL (1100-4500); Lymphocytes Percent Auto 19.5 % (25-40); Mean Corpuscular HGB Conc 34.9 % (30-36); Mean Corpuscular Hemoglobin 30.9 PG (26-34); Mean Corpuscular Volume 88.5 fL (80-100); Monocytes Absolute Auto 1300 /uL (0-900); Monocytes Percent Auto 16.1 % (3-14); Neutrophils Absolute Auto 4700 /uL (1500-7000); Neutrophils Percent Auto 57.4 % (50-75); Platelet Count 212 X10^3/uL (150-400); Red Blood Cell Count 3.69 X10^6/uL (4.5-5.9); Red Cell Distribution Width 13.6 % (11.6-14.8); White Blood Cell Count 8.2 X10^3/uL (4.5-11.0)
[2024-04-02 15:18] LABS: Alanine Aminotransferase 21 IU/L (<50); Albumin 4.4 g/dL (3.5-5.0); Albumin Globulin Ratio 1.7 (1.0-2.8); Alkaline Phosphatase 66 U/L (38-126); Aspartate Aminotransferase 25 IU/L (17-59); BUN Creatinine Ratio 20.4 (6-22); Bilirubin Total 0.6 mg/dL (0.2-1.3); Blood Urea Nitrogen 19 mg/dL (9-20); Calcium 9.5 mg/dL (8.4-10.2); Carbon Dioxide 25 mmol/L (22-32); Chloride 101 mmol/L (98-107); Estimated Glomerular Filt Rate > 60 mL/min (>60); Globulin 2.6 g/dL (1.7-4.1); Glucose 173 mg/dL (80-110); HEMOLYSIS < 15 (0-50); Potassium 4.6 mmol/L (3.4-5.1); Sodium 133 mmol/L (137-145)
[2024-04-02 16:09] VITALS: BP 162/68; PULSE 60; RESP 20; TEMP 36.7; O2SAT 96
== END 2024-04-02 16:25 | disposition home or self-care (01) ==
PROVIDERS: Emergency Provider Physician Assistant Medical; PCP Internal Medicine
DX: M79.671 Pain in right foot (principal)
CPT/HCPCS: 73610; 73630; 80053; 85025; 93926; 93971; 99281; 99283

== ENCOUNTER → 2024-06-17 14:27 | Outpatient (CLI) | payer MEDICARE, SELFPAY ==
[2024-06-17 15:26] LABS: Hematocrit 35.6 % (41-53); Hemoglobin 12.4 g/dL (13.5-17.5); Mean Corpuscular HGB Conc 34.9 % (30-36); Mean Corpuscular Volume 88.8 fL (80-100); Platelet Count 181 X10^3/uL (150-400); Red Blood Cell Count 4.01 X10^6/uL (4.5-5.9); Red Cell Distribution Width 13.2 % (11.6-14.8); White Blood Cell Count 6.5 X10^3/uL (4.5-11.0)
[2024-06-17 16:34] LABS: Neutrophils Absolute Manual 3835 /uL (3000-5900); RBC Morphology Normal Morphology; Total Cells Counted 100
[2024-06-17 16:43] LABS: Hemoglobin A1C% w Est Avg Glu 6.9 % (4.0-6.0)
[2024-06-17 17:01] LABS: TSH w/ Reflex to FT4 1.19 uIU/mL (0.47-4.68)
== END ==
PROVIDERS: PCP Internal Medicine; Referring Provider Internal Medicine; Visit Provider Internal Medicine
DX: E78.5 Hyperlipidemia, unspecified (principal); R79.89 Other specified abnormal findings of blood chemistry; I10 Essential (primary) hypertension; E11.69 Type 2 diabetes mellitus with other specified complication
CPT/HCPCS: 83036; 84443; 85025

== ENCOUNTER → 2024-07-07 11:26 | Outpatient (CLI) | payer MEDICARE, SELFPAY ==
[2024-07-07 13:23] LABS: Alanine Aminotransferase 19 IU/L (<50); Albumin 4.5 g/dL (3.5-5.0); Albumin Globulin Ratio 1.6 (1.0-2.8); Alkaline Phosphatase 60 U/L (38-126); Aspartate Aminotransferase 25 IU/L (17-59); BUN Creatinine Ratio 18.9 (6-22); Bilirubin Total 0.6 mg/dL (0.2-1.3); Blood Urea Nitrogen 20 mg/dL (9-20); Calcium 10.2 mg/dL (8.4-10.2); Carbon Dioxide 24 mmol/L (22-32); Chloride 99 mmol/L (98-107); Estimated Glomerular Filt Rate > 60 mL/min (>60); Globulin 2.9 g/dL (1.7-4.1); Glucose 141 mg/dL (80-110); HEMOLYSIS < 15 (0-50); Magnesium 2.2 mg/dL (1.6-2.3); Potassium 4.5 mmol/L (3.4-5.1); Sodium 132 mmol/L (137-145); Total Protein 7.4 g/dL (6.3-8.2)
[2024-07-07 18:54] LABS: Hemoglobin A1C% w Est Avg Glu 6.9 % (4.0-6.0)
== END ==
PROVIDERS: PCP Internal Medicine; Referring Provider Specialist; Visit Provider Specialist
DX: I10 Essential (primary) hypertension (principal); R73.9 Hyperglycemia, unspecified; R53.83 Other fatigue
CPT/HCPCS: 36415; 80053; 83036; 83735; 84443

== ENCOUNTER → 2024-12-29 08:03 | Outpatient (CLI) | payer MEDICARE, SELFPAY ==
[2024-12-29 08:58] LABS: Alanine Aminotransferase 28 IU/L (<50); Albumin 4.8 g/dL (3.5-5.0); Alkaline Phosphatase 65 U/L (38-126); Aspartate Aminotransferase 31 IU/L (17-59); BUN Creatinine Ratio 21.7 (6-22); Bilirubin Total 0.6 mg/dL (0.2-1.3); Blood Urea Nitrogen 31 mg/dL (9-20); Calcium 10.2 mg/dL (8.4-10.2); Carbon Dioxide 23 mmol/L (22-32); Chloride 105 mmol/L (98-107); Estimated Glomerular Filt Rate 48 mL/min (>60); Globulin 2.4 g/dL (1.7-4.1); Glucose 139 mg/dL (80-110); HEMOLYSIS < 15 (0-50); Magnesium 2.3 mg/dL (1.6-2.3); Potassium 4.9 mmol/L (3.4-5.1); Sodium 139 mmol/L (137-145); Total Protein 7.2 g/dL (6.3-8.2)
[2024-12-29 09:25] LABS: TSH w/ Reflex to FT4 1.98 uIU/mL (0.47-4.68)
[2024-12-31 13:11] LABS: Cholesterol, Total 126 mg/dL (100-199); HDL-Cholesterol 43 mg/dL (>39); HDL-Particle (Total) 38.1 umol/L (>=30.5); Historical Reading Comment: (.); LDL Particle 736 nmol/L (<1000); LDL Size 19.9 nm (>20.5); LDL-Cholsterol 63 mg/dL (0-99); LP-IR Score 67 (<=45); Small LDL- Particle 564 nmol/L (<=527); Triglycerides 111 mg/dL (0-149)
== END ==
PROVIDERS: PCP Internal Medicine; Referring Provider Specialist; Visit Provider Specialist
DX: I10 Essential (primary) hypertension (principal); E78.5 Hyperlipidemia, unspecified; R53.83 Other fatigue
CPT/HCPCS: 36415; 80053; 80061; 83704; 83735; 84443

== ENCOUNTER → 2025-03-09 07:09 | Outpatient (CLI) | payer MEDICARE, SELFPAY ==
[2025-03-09 07:49] LABS: Hematocrit 38.5 % (41-53); Hemoglobin 13.1 g/dL (13.5-17.5); Mean Corpuscular Hemoglobin 30.5 PG (26-34); Mean Corpuscular Volume 89.7 fL (80-100); Platelet Count 199 X10^3/uL (150-400); Red Blood Cell Count 4.29 X10^6/uL (4.5-5.9); White Blood Cell Count 5.6 X10^3/uL (4.5-11.0)
[2025-03-09 08:05] LABS: Hemoglobin A1C% w Est Avg Glu 6.8 % (4.0-6.0)
[2025-03-09 08:09] LABS: Aspartate Aminotransferase 25 IU/L (17-59); BUN Creatinine Ratio 20.3 (6-22); Blood Urea Nitrogen 28 mg/dL (9-20); Calcium 10.2 mg/dL (8.4-10.2); Carbon Dioxide 23 mmol/L (22-32); Chloride 106 mmol/L (98-107); Cholesterol 117 mg/dL (140-199); Estimated Glomerular Filt Rate 50 mL/min (>60); Glucose 132 mg/dL (70-99); HDL Cholesterol 42 mg/dL (40-60); HEMOLYSIS < 15 (0-50); LDL Cholesterol Calculated 52 mg/dL (<100); Sodium 139 mmol/L (137-145); Triglycerides 114 mg/dL (35-150)
[2025-03-09 08:39] LABS: Prostate Specific Antigen 0.216 ng/mL (0.10-4.00)
== END ==
LOC: LAB 07:10
PROVIDERS: PCP Internal Medicine; Referring Provider Internal Medicine; Visit Provider Internal Medicine
DX: E11.69 Type 2 diabetes mellitus with other specified complication (principal); N40.1 Benign prostatic hyperplasia with lower urinary tract symptoms; E78.5 Hyperlipidemia, unspecified; E78.2 Mixed hyperlipidemia; I10 Essential (primary) hypertension; N13.8 Other obstructive and reflux uropathy
CPT/HCPCS: 36415; 80048; 80061; 83036; 84153; 84450; 85027

== ENCOUNTER → 2025-03-14 10:46 | Outpatient (CLI) | payer MEDICARE, SELFPAY ==
[2025-03-14 11:57] LABS: Microalbumin Urine Random 1.1 mg/dL (0-1.6)
== END ==
PROVIDERS: PCP Internal Medicine; Referring Provider Internal Medicine; Visit Provider Internal Medicine
DX: E11.69 Type 2 diabetes mellitus with other specified complication (principal); E78.5 Hyperlipidemia, unspecified
CPT/HCPCS: 82043; 82570

== ENCOUNTER → 2025-08-29 08:34 | Outpatient (CLI) | payer MEDICARE, SELFPAY ==
--- NOTE | 2025-08-29 08:35 | DI.RAD.S_ITS ---
PROCEDURE: XR CHEST 2V INDICATIONS: cough TECHNIQUE: 2 views of the chest were acquired. COMPARISON: [facility], CR, XR CHEST 2V, 02/29/2024, 13:37. FINDINGS: Heart, mediastinum and pulmonary vascular: Heart is normal in size and configuration. Dual-chamber pacemaker leads in stable satisfactory position without complication Mediastinum is unremarkable. Pulmonary vascular is normal. Lungs: Clear Pleural spaces: Normal-no effusions or pneumothorax. Moderate chronic elevation right diaphragm stable IMPRESSION: No acute disease-stable Dictated by: Vicente Ellis M.D. on 08/29/2025 at 12:43 Approved by: Vicente Ellis M.D. on 08/29/2025 at 12:44
== END ==
PROVIDERS: PCP Internal Medicine; Referring Provider Internal Medicine; Visit Provider Internal Medicine
DX: J44.9 Chronic obstructive pulmonary disease, unspecified (principal); Z95.0 Presence of cardiac pacemaker
CPT/HCPCS: 71046